=== PATIENT | female | born 1940 | race Caucasian/White ===

== ENCOUNTER → 2017-11-11 07:00 | Outpatient (CLI) | payer MEDICARE, OTHER, SELFPAY ==
--- NOTE | 2017-11-11 07:00 | HPBI_ITS ---
MAMMOGRAPHY - BILATERAL SCREENING REASON FOR EXAM: Female, 77 years old. Routine annual screening examination. PERTINENT HISTORY: Non-contributory. TECHNIQUE: Digital bilateral breast mamadou (3D mammographic acquisition) in the CC and MLO projections. 2-D mediolateral oblique (MLO) and craniocaudad (CC) views of both breasts were obtained. CAD: Full Field Digital Mammography with Computer Added Detection was performed. COMPARISON: Comparison is made with prior study dated November 01, 2016 and August 27, 2015. FINDINGS: Breast Composition: There are scattered areas of fibroglandular density. There are no dominant masses or suspicious calcifications. Multiple small rim-like calcification nodule densities are seen in the left breast. These are unchanged. No suspicious microcalcifications are present. No other significant abnormalities are identified. There has been no significant change since the prior study. HPBI/SCREENING MAMM (CAD), BILAT IMPRESSION: Stable bilateral screening mammogram. Yearly follow-up mammogram recommended. (A) ASSESSMENT CATEGORY: BIRADS Category 2: Benign. A letter regarding these results will be sent to the patient by the facility within 30 days. Approximately 10% of breast cancers are not detected by mammography. A normal mammogram should not delay biopsy of a clinically suspicious abnormality. [id number] Electronically Signed: Mart Diamond MD at 8:32 EST Tel [phone], Service support ,
== END ==
PROVIDERS: Family Provider Internal Medicine; PCP Internal Medicine; Visit Provider Internal Medicine
DX: Z12.31 Encounter for screening mammogram for malignant neoplasm of breast (principal)
CPT/HCPCS: 77063; 77067

== ENCOUNTER → 2018-04-28 08:18 | Outpatient (CLI) | payer MEDICARE, OTHER, SELFPAY ==
[2018-04-28 09:29] LABS: Absolute Lymphocyte Count 1.37 X10^3/ul (0.83-4.51); Absolute Neutrophil Count 4.4 X10^3/uL (2.0-7.7); Basophil# 0.02 X10^3/uL; Basophil% 0.3 % (0-1); Eosinophil# 0.11 X10^3/uL; Eosinophils% 1.8 % (0-5); Hematocrit 43.5 % (37-47); Hemoglobin 14.4 g/dl (12.0-15.0); Lymphocyte # 1.37 X10^3/ul (4.0); Lymphocyte % 22.8 % (19-41); Mean Corp Hgb Conc 33.1 g/gl (32-36); Mean Corpuscular Hgb 31.7 pg (27.0-32.0); Mean Corpuscular Volume 95.8 fL (81-99); Mean Platelet Vol. 11.1 fl (6.2-12.0); Monocyte# 0.07 X10^3/uL; Monocyte% 1.2 % (0-10); Neutrophil # 4.43 X10^3/uL (2.7-7.7); Neutrophil % 73.9 % (47-70); Platelet Count 199 K/mm3 (150-450); RBC Distribution Width CV 13.1 % (11.6-14.6); RBC Distribution Width SD 45.5 fl (35.1-43.9); Red Blood Count 4.54 M/mm3 (4.2-5.4)
[2018-04-28 09:39] LABS: POSITIVE COUNT NO; POSITIVE DIFFERENTIAL NO; POSITIVE MORPHOLOGY NO
[2018-04-28 09:56] LABS: Microalbumin,Random Urine 61.9 mg/L (NO RANGE EST.); Microalbumin:Creatinine Ratio 89.6 mg/g CRE (<30 mg/g CRE)
[2018-04-28 10:05] LABS: Vitamin D,25 Hydroxy 45.7 ng/mL (29.95-100.01)
[2018-04-28 10:11] LABS: ALB/GLOB Ratio 0.8 RATIO (0.9-2.4); AST(SGOT) 23 U/L (15-37); Alanine Aminotransfer ALT/SGPT 18 U/L (13-56); Albumin, Serum 3.3 g/dL (3.2-5.0); Alkaline Phosphatase 78 U/L (45-117); Anion Gap 9 (5-15); BUN 13 mg/dL (7-18); BUN/Creat Ratio 13.9 RATIO (10-20); Calcium,Total 9.3 mg/dL (8.5-10.1); Chloride 105 mmol/L (98-107); Cholesterol 197 mg/dL (200); Creatinine, Serum 0.93 mg/dL (0.55-1.02); EST Glomerular Filtration Rate 62 mL/min (>60); Est Glom Filt Rate - Afr Amer 75 mL/min (>60); Globulin 4.1 g/dL (2.2-4.2); Glucose 102 mg/dL (74-106); High Density Lipoprotein 66 mg/dL; Potassium 3.7 mmol/L (3.5-5.1); Protein, Total 7.4 g/dL (6.4-8.2); Sodium Level 145 mmol/L (136-145); Thyroid Stim Hormone (TSH) 0.91 uIU/mL (0.358-3.74); Triglycerides 169 mg/dL; Very Low Density Lipoprotein 34 mg/dL (5-40)
== END ==
PROVIDERS: Family Provider Internal Medicine; PCP Internal Medicine; Visit Provider Internal Medicine
DX: I10 Essential (primary) hypertension (principal); E55.9 Vitamin D deficiency, unspecified; E11.65 Type 2 diabetes mellitus with hyperglycemia; E11.49 Type 2 diabetes mellitus with other diabetic neurological complication
CPT/HCPCS: 36415; 80053; 80061; 82043; 82306; 82570; 84443; 85025

== ENCOUNTER → 2018-10-23 08:09 | Outpatient (CLI) | payer MEDICARE, OTHER, SELFPAY ==
--- NOTE | 2018-10-23 08:17 | BD_ITS ---
STUDY: DUAL ENERGY X-RAY ABSORPTIOMETRY / DXA REASON FOR EXAM: Female, 78 years old. The patient is postmenopausal. Loss of height. TECHNIQUE: Bone Mineral Density (BMD) measurements of lumbar spine and bilateral hips were obtained. COMPARISON: Comparison is made with prior study dated October 16, 2016. FINDINGS: Lumbar Spine (L1-L4): g/cm2 (1.113) / T-score (-0.6) / Z-score (1.2) Findings are suggestive of normal bone density with a low fracture risk. Left Femur Total: g/cm2 (0.878) / T-score (-1.0) / Z-score (0.8) Left Femoral Neck: g/cm2 (0.861) / T-score (-1.3) / Z-score (0.8) Right Femur Total: g/cm2 (0.922) / T-score (-0.7) / Z-score (1.2) Right Femoral Neck: g/cm2 (0.92) / T-score (-0.8) / Z-score (1.2) The T-Scores on the most recent prior examination were: Lumbar Spine (L1-L4): There has been worsening of bone density since the previous examination. Left Femur Total: which represents a worsening of 3.5%. Right Femur Total: which represents a worsening of 0.1%. BD/Dexa Bone Density Study IMPRESSION: The patient is considered osteopenic as outlined below according to World Gee Organization (WHO) criteria with a low fracture risk. There has been worsening of bone density since the previous examination. Reference Information: The T-score is the number of standard deviations above or below the standard which is normal for young adults at their peak bone mineral density. The World Health Organization (WHO) interprets the T-scores as follows: Above -1 Normal bone density Between -1 and -2.5 Osteopenia Equal to / or below -2.5 Osteoporosis As a practical clinical guideline, osteopenia may be graded as follows: Mild -1 through -1.5 Moderate -1.6 through -2.0 Severe -2.1 through -2.4 The Z-score is the number of standard deviations above or below age-matched controls. A Z-score of less than -1.5 would be considered abnormal. References: 1. NIH Osteoporosis and Related Bone Diseases http://www.osteo.org 2. International Society for Clinical Densitometry http://www.iscd.org 3. National Osteoporosis Foundation http://www.nof.org Electronically Signed: Mart Diamond MD at 15:03 EST Tel [phone], Service support ,
== END ==
PROVIDERS: Family Provider Internal Medicine; PCP Internal Medicine; Visit Provider Internal Medicine
DX: Z78.0 Asymptomatic menopausal state (principal)
CPT/HCPCS: 77080

== ENCOUNTER → 2018-11-07 09:57 | Outpatient (CLI) | payer MEDICARE, OTHER, SELFPAY ==
[2017-10-10 15:45] VITALS: BMI 23.5
[2018-11-07 10:02] LABS: Mucous, Urine 0 SEEN /hpf (<or=2+)
[2018-11-07 10:30] LABS: Color, Urine Yellow (Yellow); Glucose, Dipstick Normal (Normal); Ketone-Dipstick Negative (Negative); Leukocyte Esterase-Dipstick 100 /ul (Negative); Nitrite-Dipstick Negative (Negative); Occult Blood-Urine 10 /ul (Negative); Protein-Dipstick 30 mg/dl (Negative); Urine Bilirubin Dipstick Negative (Negative); Urine Clarity Sl. Cloudy (Clear); Urine Urobilinogen Normal (Normal)
[2018-11-07 10:33] LABS: Absolute Lymphocyte Count 0.64 X10^3/ul (0.83-4.51); Absolute Neutrophil Count 3.7 X10^3/uL (2.0-7.7); Basophil# 0.03 X10^3/uL; Basophil% 0.6 % (0-1); Eosinophil# 0.07 X10^3/uL; Eosinophils% 1.3 % (0-5); Hematocrit 46.3 % (37-47); Hemoglobin 15.3 g/dl (12.0-15.0); Lymphocyte # 0.64 X10^3/ul (4.0); Lymphocyte % 12.3 % (19-41); Mean Corpuscular Hgb 31.9 pg (27.0-32.0); Mean Corpuscular Volume 96.7 fL (81-99); Mean Platelet Vol. 11.6 fl (6.2-12.0); Monocyte# 0.71 X10^3/uL; Monocyte% 13.7 % (0-10); Neutrophil # 3.74 X10^3/uL (2.7-7.7); Neutrophil % 72.1 % (47-70); Platelet Count 152 K/mm3 (150-450); RBC Distribution Width CV 12.7 % (11.6-14.6); RBC Distribution Width SD 44.1 fl (35.1-43.9); Red Blood Count 4.79 M/mm3 (4.2-5.4); White Blood Count 5.2 K/mm3 (4.4-11.0)
[2018-11-07 10:36] LABS: Bacteria 1+ /hpf (None Seen); Red Blood Cells-Urine 0-5 SEEN /hpf (0-5); Squamous Epithelial Cells - UA 0-5 SEEN /hpf (5-10); White Blood Cells 10-25 SEEN /hpf (0-5)
[2018-11-07 10:37] LABS: POSITIVE COUNT NO; POSITIVE DIFFERENTIAL NO; POSITIVE MORPHOLOGY NO
[2018-11-07 10:53] LABS: Microalbumin,Random Urine 37.4 mg/L (NO RANGE EST.)
[2018-11-07 11:10] LABS: ALB/GLOB Ratio 0.9 RATIO (0.9-2.4); AST(SGOT) 19 U/L (15-37); Alanine Aminotransfer ALT/SGPT 20 U/L (13-56); Albumin, Serum 3.6 g/dL (3.2-5.0); Alkaline Phosphatase 79 U/L (45-117); Anion Gap 9 (5-15); BUN 14 mg/dL (7-18); Calcium,Total 9.5 mg/dL (8.5-10.1); Chloride 106 mmol/L (98-107); Creatinine, Serum 0.94 mg/dL (0.55-1.02); EST Glomerular Filtration Rate 62 mL/min (>60); Est Glom Filt Rate - Afr Amer 75 mL/min (>60); Globulin 4.1 g/dL (2.2-4.2); Glucose 168 mg/dL (74-106); Potassium 3.6 mmol/L (3.5-5.1); Protein, Total 7.7 g/dL (6.4-8.2); Sodium Level 144 mmol/L (136-145); Thyroid Stim Hormone (TSH) 1.04 uIU/mL (0.358-3.74)
== END ==
PROVIDERS: Family Provider Internal Medicine; PCP Internal Medicine; Referring Provider Internal Medicine; Visit Provider Internal Medicine
DX: I10 Essential (primary) hypertension (principal); E11.9 Type 2 diabetes mellitus without complications
CPT/HCPCS: 36415; 80053; 80061; 81001; 82043; 82570; 83704; 84443; 85025

== ENCOUNTER → 2018-11-25 08:38 | Outpatient (CLI) | payer MEDICARE, OTHER, SELFPAY ==
[2017-10-10 15:45] VITALS: BMI 23.5
--- NOTE | 2018-11-25 08:41 | BI_ITS ---
MAMMOGRAPHY - BILATERAL SCREENING REASON FOR EXAM: Female, 78 years old. Routine annual screening examination. PERTINENT HISTORY: Non-contributory. TECHNIQUE: Digital bilateral breast mamadou (3D mammographic acquisition) in the CC and MLO projections. 2-D mediolateral oblique (MLO) and craniocaudad (CC) views of both breasts were obtained. CAD: Full Field Digital Mammography with Computer Added Detection was performed. COMPARISON: Comparison is made with prior examination dated November 11, 2017 and November 01, 2016. FINDINGS: Breast Composition: There are scattered areas of fibroglandular density. There are no dominant masses or suspicious calcifications. Stable appearance of the multiple small rim-like calcified nodules in the left anterior breast. These are unchanged. No other significant abnormalities are identified. There has been no significant change since the prior study. BI/SCREENING MAMM (CAD), BILAT IMPRESSION: Stable bilateral screening mammogram. Yearly follow-up mammogram recommended. (A) ASSESSMENT CATEGORY: BIRADS Category 2: Benign. A letter regarding these results will be sent to the patient by the facility within 30 days. Approximately 10% of breast cancers are not detected by mammography. A normal mammogram should not delay biopsy of a clinically suspicious abnormality. [id number] Electronically Signed: Mart Diamond MD at 10:29 EST , Service support ,
== END ==
PROVIDERS: Family Provider Internal Medicine; PCP Internal Medicine; Referring Provider Internal Medicine; Visit Provider Internal Medicine
DX: Z12.31 Encounter for screening mammogram for malignant neoplasm of breast (principal)
CPT/HCPCS: 77063; 77067

== ENCOUNTER 2018-12-28 14:19 | Observation (INO) | payer MEDICARE, OTHER, SELFPAY ==
[2018-12-28] VITALS (11 sets, daily range): BP systolic 153–177; BP diastolic 64–84; PULSE 74–87; RESP 13–21; TEMP 36.6–36.9; O2SAT 97–100; BMI 26.1; BMI 25.7
--- NOTE | 2018-12-28 14:37 | CT_ITS ---
STUDY: CT BRAIN WITHOUT CONTRAST REASON FOR EXAM: Female, 78 years old. Weakness in the right first digit RADIATION DOSAGE (If Supplied By Facility): CTDIvol = ( 44.99 ) mGy, DLP = ( 748.30 ) mGycm TECHNIQUE: Transaxial CT imaging of the brain was performed without administration of intravenous contrast material. Individualized dose optimization techniques were used for this CT. COMPARISON: None. FINDINGS: Normal soft tissue structures. Normal calvarium. There is mild cerebral atrophy with widening of the extra-axial spaces and ventricular dilatation. There are areas of decreased attenuation within the white matter tracts of the supratentorial brain, consistent with microvascular disease changes. Normal basal ganglia and thalami. Normal brainstem. Normal cerebellum. There is no intracranial hemorrhage. There are no findings of an acute ischemic infarction. There is atherosclerosis of the carotid siphons and vertebral arteries. Normal visualized paranasal sinuses. CT/Brain/Head without Contrast IMPRESSION: 1. No acute intracranial hemorrhage or mass effect. 2. Age-appropriate central parenchymal volume loss. White matter changes that are nonspecific but most commonly associated with chronic small vessel ischemic disease. Electronically Signed: Frederick Issa MD at 14:59 EDT , Service support ,
--- NOTE | 2018-12-28 14:37 | EKG12_ITS ---
Test Reason : WEAKNESS Blood Pressure : / mmHG Vent. Rate : 083 BPM Atrial Rate : 083 BPM P-R Int : 152 ms QRS Dur : 074 ms QT Int : 378 ms P-R-T Axes : 025 002 033 degrees QTc Int : 444 ms Normal sinus rhythm Normal ECG Confirmed by BIA SAGASTUME MD ([id number]), editor farm journal YUNIER ARCE ([id number]) on 12/29/2018 4:07:25 PM Referred By: Jim Alford Confirmed By:BIA SAGASTUME MD
[2018-12-28 14:48] LABS: Absolute Lymphocyte Count 0.87 X10^3/ul (0.83-4.51); Absolute Neutrophil Count 3.2 X10^3/uL (2.0-7.7); Basophil# 0.04 X10^3/uL; Basophil% 0.8 % (0-1); Eosinophil# 0.12 X10^3/uL; Eosinophils% 2.5 % (0-5); Hematocrit 42.1 % (37-47); Hemoglobin 14.4 g/dl (12.0-15.0); Lymphocyte # 0.87 X10^3/ul (4.0); Lymphocyte % 18.3 % (19-41); Mean Corp Hgb Conc 34.2 g/gl (32-36); Mean Corpuscular Hgb 32.8 pg (27.0-32.0); Mean Corpuscular Volume 95.9 fL (81-99); Mean Platelet Vol. 11.4 fl (6.2-12.0); Monocyte# 0.48 X10^3/uL; Monocyte% 10.1 % (0-10); Neutrophil # 3.23 X10^3/uL (2.7-7.7); Neutrophil % 68.1 % (47-70); POSITIVE COUNT NO; POSITIVE DIFFERENTIAL NO; POSITIVE MORPHOLOGY NO; Platelet Count 165 K/mm3 (150-450); RBC Distribution Width CV 12.6 % (11.6-14.6); RBC Distribution Width SD 42.2 fl (35.1-43.9); Red Blood Count 4.39 M/mm3 (4.2-5.4); White Blood Count 4.8 K/mm3 (4.4-11.0)
[2018-12-28 14:52] LABS: Prothrombin Time (Protime)PT. 12.7 SECONDS (11.7-14.9)
[2018-12-28 14:53] LABS: Partial Thromboplast Time 26.4 Seconds (24.1-36.2)
[2018-12-28 15:06] LABS: Anion Gap 4 (5-15); BUN 15 mg/dL (7-18); BUN/Creat Ratio 14.3 RATIO (10-20); Calcium,Total 9.4 mg/dL (8.5-10.1); Chloride 106 mmol/L (98-107); Creatinine, Serum 1.05 mg/dL (0.55-1.02); EST Glomerular Filtration Rate 54 mL/min (>60); Est Glom Filt Rate - Afr Amer 65 mL/min (>60); Estimated Creatinine Clearance 32.23 ml/min; Glucose 286 mg/dL (74-106); Potassium 3.7 mmol/L (3.5-5.1); Sodium Level 139 mmol/L (136-145)
[2018-12-28 15:16] LABS: Bedside Glucose 265 mg/dL (70-110)
--- NOTE | 2018-12-28 16:27 | ED.DCSUM_ITS ---
- ER Visit Summary Date of Service: 12/28/18 Chief Complaint: Right arm weakness History of Present Illness: The patient is a 78 F, diabetic presents with right arm weakness for about an hour and a half prior to arrival. This has improved and now she only has weakness of her thumb and index finger. She has no speech difficulties vision changes sensory deficits she has no gait abnormalities. Physical Examination: Otherwise normal exam, when asked her to raise her arms up she has a small pronator drift as well as slight drift against gravity. Otherwise she has a normal exam and her NIH stroke scale is 1. Emergency Department Course and Treatment: She has an unremarkable ED workup, her ABCD 2 score is 6. Because of this she is high risk and will need admission for neurological workup. Admit stable condition Impression: TIA This note was generated with [employer] dictation software. It may contain incorrect words, spelling, and punctuation that were not noted in review of the chart prior to signing ED Disposition - Plan for ED Patient: Referrals: Macy Stone DO [Primary Care Provider] -
--- NOTE | 2018-12-28 17:21 | HP.PCM_ITS ---
Problem List (1) Right hand weakness Status: Acute (2) Family history of skin cancer Status: Chronic (3) Actinic keratosis Status: Chronic Comment: 8 mm actinic keratosis with moderate atypia dorsum right hand by long finger (4) Diabetes mellitus type 2 in nonobese Status: Chronic History of Present Illness Date of Admission: 12/28/18 Chief Complaint: Right hand weakness The patient is a 78 year old F with diabetes mellitus type 2, not on insulin came to ER with sudden onset of right hand weakness, started dropping objects about 1 PM today. Patient denies any other symptoms including headache, facial drooping, other extremity weakness or paresthesia or sensory deficit or gait abnormalities. Denies speech abnormality or dysphagia. Denies any previous history of TIA. As per the ER physician, he found NIH stroke score 1 of right arm drifting which is now improved to right arm weakness only. When I examined, weakness of thumb and right index finger. Patient denies history of chronic hand arthritis or carpal tunnel syndrome or previous history of TIA or stroke. EKG normal sinus rhythm [address] head does not show any acute change. Past Medical History Past Medical History (Chronic Problems): Chronic Problems (Last Updated 09/24/17 @ 14:24 by Renetta George) Diabetes mellitus type 2 in nonobese (Chronic) Family history of skin cancer (Chronic) Actinic keratosis (Chronic) 8 mm actinic keratosis with moderate atypia dorsum right hand by long finger Medical History: Medical History (Last Updated 09/24/17 @ 14:24 by Renetta George) ACTINIC KERATOSIS WITH MODERATE ATYPIA DORSUM RIGHT HAND BY LONG FINGER BLADDER/URINARY TRACT INFECTION CATARACTS Diabetes E11.9 Gastrointestinal problem R19.8 High cholesterol E78.00 Macular degeneration H35.30 BP (high blood pressure) I10 Allergies No Known Allergies Allergy (Verified 09/06/16 08:09) Home Medications: Ambulatory Orders Medication Instructions Recorded Glimepiride [Amaryl] 2 mg PO DAILY 10/15/14 Metoprolol Tartrate [Lopressor 25 mg PO DAILY 10/15/14 (beta selvin)] Niacin SA [Niaspan] 500 mg PO DAILY 10/15/14 Surgical History: Surgical History (Last Updated 09/24/17 @ 14:30 by Renetta George) EXCISION ACTINIC KERATOSIS WITH MODERATE ATYPIA 8 MM ACTINIC KERATOSIS WITH MODERATE ATYPIA DORSUM RIGHT HAND BY LONG FINGER WITH BILOBED TRANSPOSITION SKIN FLAP RECONSTRUCTION ( 12 CM2) - 09/03/17 EXCISION PANCREATIC CYST H/O exploratory laparotomy Z98.890 History of cholecystectomy Z98.890, Z90.49 Smoking Status: Never smoker - *Family History Paternal Family History: Family History (Last Updated 09/24/17 @ 14:31 by Renetta George) Son Diabetes History Items: - - History of skin cancer Review of Systems Constitutional: Denies: Chills, Fever, Weight Change HEENT: Denies: Head Aches, Sinus Congestion, Sinus Drainage Cardiovascular: Denies: Chest Pain, Palpitations Respiratory: Denies: Cough, Shortness of breath at rest, Sputum production Gastrointestinal: Denies: Abdominal Pain, Nausea, Vomiting Genitourinary: Denies: Dysuria Musculoskeletal: Denies: Joint Pain, Joint Tenderness Skin: Denies: Rash, Wounds Neurological: Reports: Focal weakness, -. Denies: Numbness, Tingling Psychiatric: Denies: Anxiety, Depression, Homicidal Ideations, Suicidal Ideations Hematologic/ Lymphatic: Denies: Easy Bruising, Easy Bleeding VTE Information - Inpt Only VTE Present on Admission: No VTE Mechan Device Prophylaxis: None VTE Pharm Prophylaxis ordered?: Yes Patient Problems: Active and Suspected Problems (Last Updated 09/24/17 @ 14:24 by Renetta George) Right hand weakness (Acute) - Physical Exam General: Alert, Oriented x3, Cooperative HEENT: Atraumatic, PERRLA, EOMI, Normocephalic Oral: Moist Mucosa, No Gingival or Mucosal Lesions/ Ulcerations Neck: Supple, No JVD, Negative Carotid Bruits Lungs: Clear to auscultation, Normal air movement, No rhonchi, No wheeze, No rales Cardiovascular: Regular rate, Regular Rhythm, Normal S1, Normal S2, No murmurs Abdomen: Bowel Sounds Present, Soft, Non Tender, Non-Distended Extremities: No edema, Capillary Refill Less than 3 Seconds Skin: No rashes, No breakdown Musculoskeletal: No Tenderness to Palpation of Joints or Extremities, Arthritic Changes, Muscle Wasting - Bilateral mild atrophy of small muscles of hand, chronic change Neurological: Cranial nerves II-XII grossly intact, Deep Tendon Reflexes 2+/4 and Symmetrical, Neuro grossly intact, - - Weakness of right thumb and index finger. Hand Drawer In Helper strength is 4/ 5 Psych/Mental Status: Normal Affect, Appropriate Vital Signs Temp Pulse Resp BP Pulse Ox 97.8 F 87 20 H 168/77 H 98 12/28/18 14:20 12/28/18 17:03 12/28/18 17:03 12/28/18 17:03 12/28/18 16:22 Oxygen Delivery Method Room Air Weight: 133 lb 9.602 oz Body Mass Index (BMI) 26.1 Finger Stick Blood Glucose 265 Laboratory Tests Past 24 Hrs 12/28/18 12/28/18 12/28/18 14:25 14:25 14:25 WBC 4.8 RBC 4.39 Hgb 14.4 Hct 42.1 MCV 95.9 MCH 32.8 H MCHC 34.2 RDW 12.6 RDW Differential 42.2 Plt Count 165 MPV 11.4 Immature Gran % (Auto) 0.200 Neut % (Auto) 68.1 Lymph % (Auto) 18.3 L [place] % (Auto) 10.1 H Eos % (Auto) 2.5 Baso % (Auto) 0.8 Absolute Neuts (auto) 3.2 Absolute Lymphs (auto) 0.87 Total Counted Not Reportable PT 12.7 INR 1.0 APTT 26.4 Sodium 139 Potassium 3.7 Chloride 106 Carbon Dioxide 29.0 Anion Gap 4 L BUN 15 Creatinine 1.05 H Estim Creat Clear Calc 32.23 Est GFR (MDRD) Af Amer 65 Est GFR (MDRD) Non-Af 54 L BUN/Creatinine Ratio 14.3 Glucose 286 H Calcium 9.4 Troponin I < 0.015 POC Glucose 12/28/18 14:21 POC Glucose 265 H Assessment/Plan All Active Problems (Last Updated 09/24/17 @ 14:24 by Renetta George) Right hand weakness (Acute) The patient is a 78 year old F with diabetes mellitus type 2, not on insulin came to ER with sudden onset of right hand weakness, started dropping objects about 1 PM today. Patient denies any other symptoms including headache, facial drooping, other extremity weakness or paresthesia or sensory deficit or gait abnormalities. Denies speech abnormality or dysphagia. Denies any previous history of TIA. As per the ER physician, he found NIH stroke score 1 of right arm drifting which is now improved to right arm weakness only. When I examined, weakness of thumb and right index finger. Patient denies history of chronic hand arthritis or carpal tunnel syndrome or previous history of TIA or stroke. 1. Focal right hand weakness probably related to carpal tunnel or radial neuropathy/cervical neuropathy: Patient does not have neck pain. Patient is being admitted to PCU to rule out TIA/stroke. MRI brain ordered. Neurology consult. If MRI brain is abnormal can order CT of head and neck. Carotid Doppler of neck is ordered. ABCD 2 score is 6. PT, OT and speech/swallow evaluation. Denies history of hypertension. Elevated blood pressure, 153/64-168/77. Monitor blood pressure if is still elevated can start low-dose lisinopril tomorrow morning 2. Diabetes mellitus type 2: Glucose is 286. A1c tomorrow a.m. Accu-Chek before meals and at bedtime and cover with NovoLog sliding scale. 3. Other chronic comorbidities include actinic keratosis. DVT prophylaxis: On Lovenox 40 mg subcu daily Laboratory Results 12/28/18 14:21: POC Glucose 265 H 12/28/18 14:25: WBC 4.8, RBC 4.39, Hgb 14.4, Hct 42.1, MCV 95.9, MCH 32.8 H, MCHC 34.2, RDW 12.6, RDW Differential 42.2, Plt Count 165, MPV 11.4, Immature Gran % (Auto) 0.200, Neut % (Auto) 68.1, Lymph % (Auto) 18.3 L, [place] % (Auto) 10.1 H, Eos % (Auto) 2.5, Baso % (Auto) 0.8, Absolute Neuts (auto) 3.2, Absolute Lymphs (auto) 0.87, Total Counted Not Reportable 12/28/18 14:25: PT 12.7, INR 1.0, APTT 26.4 12/28/18 14:25: Sodium 139, Potassium 3.7, Chloride 106, Carbon Dioxide 29.0, Anion Gap 4 L, BUN 15, Creatinine 1.05 H, Estim Creat Clear Calc 32.23, Est GFR (MDRD) Af Amer 65, Est GFR (MDRD) Non-Af 54 L, BUN/Creatinine Ratio 14.3, Glucose 286 H, Calcium 9.4, Troponin I < 0.015 Clinical Impression(s) from Imaging Studies Brain CT 12/28/18 14:37 IMPRESSION: 1. No acute intracranial hemorrhage or mass effect. 2. Age-appropriate central parenchymal volume loss. White matter changes that are nonspecific but most commonly associated with chronic small vessel ischemic disease. Code Visit OBSV E&M: 67140 Initial observation care L3
--- NOTE | 2018-12-28 17:58 | MRI_ITS ---
We are attempting to reach Jim Alford to discuss findings. An addendum with communication details will be sent when the communication is complete. STUDY: MRI BRAIN WITHOUT CONTRAST REASON FOR EXAM: Female, 78 years old. rt arm hand weakness. TECHNIQUE: Standardized multiplanar fat and water weighted pulse sequences were obtained. COMPARISON: 12/28/2018 CT of the head FINDINGS: There is mild cerebral atrophy with widening of the extra-axial spaces and ventricular dilatation. There are multiple white matter hyperintensities, distributed throughout the deep white matter tracts of the cerebral hemispheres, consistent with moderate chronic white matter ischemic changes. There is right occipital encephalomalacia and gliosis, consistent with prior insult. There is left posterior frontal small area of restricted diffusion (diffusion image #21 series 4) with drop of signal on a DC map consistent with acute infarction. Normal bilateral basal ganglia. Normal thalami. There is no extra-axial fluid accumulation. Normal flow voids within the major intracranial circulation suggesting patency by spin echo criteria. Normal sella turcica, pituitary gland, infundibular stalk, optic chiasm and hypothalamus. Normal tectal plate and pineal gland. There are chronic white matter ischemic changes of the kathleen. The midbrain and medulla are otherwise normal. 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 Moderate chronic microvascular ischemic changes. Electronically Signed: Maranda De La Torre MD at 9:44 EDT Tel , Service support ,
[2018-12-28] MEDS: 0.9% Normal Saline 1,000 ML 100 ML IV (18:27)
[2018-12-28] MEDS: Enoxaparin 40 MG/0.4 ML Syringe SC (18:52)
[2018-12-28] MEDS: Aspirin 81 MG TAB.CHEW PO (18:52)
[2018-12-28] MEDS: Atorvastatin Calcium 80 MG Tablet PO (21:10)
[2018-12-28] MEDS: Famotidine 20 MG Tablet PO (21:10)
[2018-12-28 21:11] LABS: Magnesium 1.8 mg/dL (1.6-2.6); Thyroid Stim Hormone (TSH) 0.89 uIU/mL (0.358-3.74)
[2018-12-28 21:15] LABS: Bedside Glucose 205 mg/dL (70-110)
[2018-12-28] MEDS: Insulin Lispro 100 UNIT/ML INSULN.PEN SQ (21:15)
[2018-12-29] VITALS (13 sets, daily range): BP systolic 133–162; BP diastolic 60–79; PULSE 65–95; RESP 14–18; TEMP 36.4–37; O2SAT 95–98; BMI 25.7
[2018-12-29] MEDS: Loperamide 2 MG Capsule PO ×3 (00:35→21:54)
[2018-12-29 07:14] LABS: Cholesterol 167 mg/dL (200); High Density Lipoprotein 64 mg/dL; Triglycerides 167 mg/dL; Very Low Density Lipoprotein 33 mg/dL (5-40)
[2018-12-29 07:36] LABS: Bedside Glucose 96 mg/dL (70-110)
[2018-12-29 08:09] LABS: Hemoglobin A1c 7.7 % (4.2-6.3)
--- NOTE | 2018-12-29 10:00 | CDU_ITS ---
Reason For Study: TIA Rt. Velocities/BP Lt. Velocities/BP Prox CCA 72/16 cm/sec. Prox CCA 106/18 cm/sec. Mid CCA 65/17 cm/sec. Mid CCA 82/14 cm/sec. Dist CCA 67/16 cm/sec. Dist CCA 63/16 cm/sec. Prox ICA 60/16 cm/sec. Prox ICA 58/15 cm/sec. Mid ICA 72/20 cm/sec. Mid ICA 58/18 cm/sec. Dist ICA 46/14 cm/sec. Dist ICA 62/20 cm/sec. Rt. ICA/CCA = 1.11. Lt. ICA/CCA = 0.76. Prox ECA 64/1 cm/sec. Prox ECA 55/8 cm/sec. Rt. Vert. 57/17 cm/sec. Lt. Vert. 45/14 cm/sec. Right Extracranial There is intimal thickening but no significant atherosclerotic plaque noted in the right common carotid artery. There is heterogeneous, irregular atherosclerotic plaque noted in the right internal carotid artery. There is intimal thickening but no significant atherosclerotic plaque noted in the right external carotid artery. Antegrade flow is noted in the right vertebral artery. Left Extracranial There is intimal thickening but no significant atherosclerotic plaque noted in the left common carotid artery. There is heterogeneous, irregular atherosclerotic plaque noted in the left internal carotid artery. There is intimal thickening but no significant atherosclerotic plaque noted in the left external carotid artery. Antegrade flow is noted in the left vertebral artery. Procedure Carotid Duplex [id number]. Exam performed portable in patient room. Interpretation Summary Minimal plague at the proximal right internal carotid with <50% stenosis Normal flow right external carotid Minimal plague at the proximal left internal carotid with <50% stenosis Normal flow left external carotid Patent and antegrade vertebrals bilaterally Ordering Physician: Jim Alford Referring Physician: Macy Stone Performed By: Irene Burch, RDCS, RVT
[2018-12-29] MEDS: Enoxaparin 40 MG/0.4 ML Syringe SC (10:23)
[2018-12-29] MEDS: Aspirin 81 MG TAB.CHEW PO (10:23)
[2018-12-29] MEDS: Famotidine 20 MG Tablet PO ×2 (10:23→21:53)
[2018-12-29] MEDS: Insulin Lispro 100 UNIT/ML INSULN.PEN SQ ×3 (11:34→21:54)
[2018-12-29 11:45] LABS: Bedside Glucose 153 mg/dL (70-110)
--- NOTE | 2018-12-29 11:57 | PCM.CONS.GEN ---
Reason for Consult Date of Consultation: 12/29/18 Reason for Consultation: cva History of Present Illness: The patient is a 78 year old F right handed presented yesterday afternoon to ed with onset begining at 1pm of right hand weakness, with out other associated symptoms. family transported her to the ed at 2pm and was admitted. today feels improved, not baseline. doesnt take asa at home, no history of afib. no history of tob use. no recent illness or med changes. Per admit note: The patient is a 78 year old F with diabetes mellitus type 2, not on insulin came to ER with sudden onset of right hand weakness, started dropping objects about 1 PM today. Patient denies any other symptoms including headache, facial drooping, other extremity weakness or paresthesia or sensory deficit or gait abnormalities. Denies speech abnormality or dysphagia. Denies any previous history of TIA. As per the ER physician, he found NIH stroke score 1 of right arm drifting which is now improved to right arm weakness only. When I examined, weakness of thumb and right index finger. Patient denies history of chronic hand arthritis or carpal tunnel syndrome or previous history of TIA or stroke. EKG normal sinus rhythm [address] head does not show any acute change. Past Medical History Past Medical History (Chronic Problems): Chronic Problems (Last Reviewed 12/29/18 @ 12:25 by Fabrice Sorensen MD) Diabetes mellitus type 2 in nonobese (Chronic) Family history of skin cancer (Chronic) Actinic keratosis (Chronic) 8 mm actinic keratosis with moderate atypia dorsum right hand by long finger Medical History: Medical History (Last Reviewed 12/29/18 @ 12:25 by Fabrice Sorensen MD) ACTINIC KERATOSIS WITH MODERATE ATYPIA DORSUM RIGHT HAND BY LONG FINGER BLADDER/URINARY TRACT INFECTION CATARACTS Diabetes E11.9 Gastrointestinal problem R19.8 High cholesterol E78.00 Macular degeneration H35.30 BP (high blood pressure) I10 Allergies No Known Allergies Allergy (Verified 09/06/16 08:09) Home Medications: Ambulatory Orders Medication Instructions Recorded Glimepiride [Amaryl] 2 mg PO BID 10/15/14 Metoprolol Tartrate [Lopressor 25 mg PO DAILY 10/15/14 (beta selvin)] Niacin SA [Niaspan] 500 mg PO DAILY 10/15/14 Bismuth Subsalicylate 262 mg PO BID 12/28/18 [Pepto-Bismol] Famotidine [Pepcid] 20 mg PO BID 12/28/18 Loperamide HCl [Imodium A-D] 2 mg PO PRN PRN 12/28/18 Surgical History: Surgical History (Last Reviewed 12/29/18 @ 12:25 by Fabrice Sorensen MD) EXCISION ACTINIC KERATOSIS WITH MODERATE ATYPIA 8 MM ACTINIC KERATOSIS WITH MODERATE ATYPIA DORSUM RIGHT HAND BY LONG FINGER WITH BILOBED TRANSPOSITION SKIN FLAP RECONSTRUCTION ( 12 CM2) - 09/03/17 EXCISION PANCREATIC CYST H/O exploratory laparotomy Z98.890 History of cholecystectomy Z98.890, Z90.49 Smoking Status: Never smoker Tobacco Use: Non-smoker Alcohol: None - *Family History Paternal Family History: Family History (Last Updated 09/24/17 @ 14:31 by Renetta George) Son Diabetes History Items: - - History of skin cancer Review of Systems Constitutional: Denies: Chills, Fever, Weight Change HEENT: Denies: Head Aches, Sinus Congestion, Sinus Drainage Cardiovascular: Denies: Chest Pain, Palpitations Respiratory: Denies: Cough, Shortness of breath at rest, Sputum production Gastrointestinal: Denies: Abdominal Pain, Nausea, Vomiting Genitourinary: Denies: Dysuria Musculoskeletal: Denies: Joint Pain, Joint Tenderness Skin: Denies: Rash, Wounds Neurological: Reports: Focal weakness - right hand. Denies: Numbness, Tingling Psychiatric: Denies: Anxiety, Depression, Homicidal Ideations, Suicidal Ideations Hematologic/ Lymphatic: Denies: Easy Bruising, Easy Bleeding Patient Problems: Active and Suspected Problems (Last Reviewed 12/29/18 @ 12:25 by Fabrice Sorensen MD) Right hand weakness (Acute) - Physical Exam General: Alert, Oriented x3, Cooperative HEENT: Atraumatic, PERRLA, EOMI, Normocephalic Neck: Supple, No JVD, Negative Carotid Bruits Lungs: Clear to auscultation, Normal air movement Cardiovascular: Regular rate, No murmurs Abdomen: Bowel Sounds Present, Soft, Non Tender Extremities: No edema, Capillary Refill Less than 3 Seconds Skin: No rashes, No breakdown Musculoskeletal: No Tenderness to Palpation of Joints or Extremities Neurological: Cranial nerves II-XII grossly intact, - - minimal abn orbit on right Psych/Mental Status: Normal Affect, Appropriate Vital Signs Temp Pulse Resp BP Pulse Ox 36.8 C 76 16 162/78 H 98 12/29/18 10:00 12/29/18 10:00 12/29/18 10:00 12/29/18 10:00 12/29/18 10:00 Oxygen Delivery Method Room Air Weight: 59.8 kg Body Mass Index (BMI) 25.7 Finger Stick Blood Glucose 265 Intake and Output for Last 24 Hours 12/27/18 12/28/18 12/29/18 23:59 23:59 23:59 Intake Total 0 / 0 1100 / 1100 Output Total 0 / 0 Balance 0 / 0 1100 / 1100 Laboratory Tests Past 24 Hrs 12/28/18 12/28/18 12/28/18 14:25 14:25 14:25 WBC 4.8 RBC 4.39 Hgb 14.4 Hct 42.1 MCV 95.9 MCH 32.8 H MCHC 34.2 RDW 12.6 RDW Differential 42.2 Plt Count 165 MPV 11.4 Immature Gran % (Auto) 0.200 Neut % (Auto) 68.1 Lymph % (Auto) 18.3 L [place] % (Auto) 10.1 H Eos % (Auto) 2.5 Baso % (Auto) 0.8 Absolute Neuts (auto) 3.2 Absolute Lymphs (auto) 0.87 Total Counted Not Reportable PT 12.7 INR 1.0 APTT 26.4 Sodium 139 Potassium 3.7 Chloride 106 Carbon Dioxide 29.0 Anion Gap 4 L BUN 15 Creatinine 1.05 H Estim Creat Clear Calc 32.23 Est GFR (MDRD) Af Amer 65 Est GFR (MDRD) Non-Af 54 L BUN/Creatinine Ratio 14.3 Glucose 286 H Hemoglobin A1c Calcium 9.4 Magnesium Troponin I < 0.015 Triglycerides Cholesterol LDL Cholesterol VLDL Cholesterol HDL Cholesterol TSH 12/28/18 12/28/18 12/29/18 18:20 18:20 06:20 WBC RBC Hgb Hct MCV MCH MCHC RDW RDW Differential Plt Count MPV Immature Gran % (Auto) Neut % (Auto) Lymph % (Auto) [place] % (Auto) Eos % (Auto) Baso % (Auto) Absolute Neuts (auto) Absolute Lymphs (auto) Total Counted PT INR APTT Sodium Potassium Chloride Carbon Dioxide Anion Gap BUN Creatinine Estim Creat Clear Calc Est GFR (MDRD) Af Amer Est GFR (MDRD) Non-Af BUN/Creatinine Ratio Glucose Hemoglobin A1c Calcium Magnesium 1.8 Troponin I < 0.015 Triglycerides 167 Cholesterol 167 LDL Cholesterol 70 VLDL Cholesterol 33 HDL Cholesterol 64 TSH 0.89 12/29/18 06:20 WBC RBC Hgb Hct MCV MCH MCHC RDW RDW Differential Plt Count MPV Immature Gran % (Auto) Neut % (Auto) Lymph % (Auto) [place] % (Auto) Eos % (Auto) Baso % (Auto) Absolute Neuts (auto) Absolute Lymphs (auto) Total Counted PT INR APTT Sodium Potassium Chloride Carbon Dioxide Anion Gap BUN Creatinine Estim Creat Clear Calc Est GFR (MDRD) Af Amer Est GFR (MDRD) Non-Af BUN/Creatinine Ratio Glucose Hemoglobin A1c 7.7 H Calcium Magnesium Troponin I Triglycerides Cholesterol LDL Cholesterol VLDL Cholesterol HDL Cholesterol TSH POC Glucose 12/29/18 12/29/18 12/28/18 11:32 07:30 21:08 POC Glucose 153 H 96 205 H 12/28/18 14:21 POC Glucose 265 H MRI reviewed. There is a small cortical left MCA distribution infarct of the post central gyrus. Current Home Med List Medication Instructions Recorded Confirmed Type Glimepiride [Amaryl] 2 mg PO BID 10/15/14 12/28/18 History Metoprolol Tartrate [Lopressor 25 mg PO DAILY 10/15/14 12/28/18 History (beta selvin)] Niacin SA [Niaspan] 500 mg PO DAILY 10/15/14 12/28/18 History Bismuth Subsalicylate 262 mg PO BID 12/28/18 12/28/18 History [Pepto-Bismol] Famotidine [Pepcid] 20 mg PO BID 12/28/18 12/28/18 History Loperamide HCl [Imodium A-D] 2 mg PO PRN PRN 12/28/18 12/28/18 History Current Medications Generic Name Dose Route Start Last Admin Trade Name Freq PRN Reason Stop Dose Admin Acetaminophen 650 mg 12/28/18 17:58 Tylenol PO Q4H PRN PRN Headache/Temp>99F Aspirin 81 mg 12/28/18 18:30 12/29/18 10:23 Aspirin, Baby PO 81 mg DAILY@0800 KATT Administration Atorvastatin Calcium 80 mg 12/28/18 22:00 12/28/18 21:10 Lipitor PO 80 mg QHS KATT Administration Dextrose 0 gm 12/28/18 17:58 D50w Syringe IV X1 PRN Hypoglycemia Protocol Enoxaparin Sodium 40 mg 12/28/18 18:30 12/29/18 10:23 Lovenox SC 40 mg DAILY KATT Administration Famotidine 20 mg 12/28/18 22:00 12/29/18 10:23 Pepcid PO 20 mg BID KATT Administration Glucagon 1 mg 12/28/18 17:58 IM .X1 PRN Hypoglycemia Insulin Human Lispro 0 unit 12/28/18 22:00 12/29/18 11:34 Humalog Kwikpen (Bkc) SQ 2 u ACHS KATT Administration Protocol Loperamide HCl 2 mg 12/29/18 00:00 12/29/18 10:23 Imodium PO 2 mg BID KATT Administration Sodium Chloride 5 - 15 ml 12/28/18 18:30 IV UD PRN SALINE FLUSH carotid us neg by report Assessment/Plan All Active Problems (Last Reviewed 12/29/18 @ 12:25 by Fabrice Sorensen MD) Right hand weakness (Acute) small left cortical infarct agree with statin agree with asa bp control echo tele dc in am if above normal
--- NOTE | 2018-12-29 12:31 | ECHOCS_ITS ---
Version 2 Reason For Study: CVA Procedure This was a 2D Doppler, Color Flow transthoracic echocardiogram. Contrast injection was performed. Exam performed portable in patient room. Left Ventricle Normal LV size. Left ventricular systolic function is normal. The estimated ejection fraction is 60 %. Stage 1 diastolic dysfunction. No regional wall motion abnormalities noted. Right Ventricle Normal RV size. Normal systolic function. Atria Normal left atrium. Normal right atrium. Intact atrial septum. Mitral Valve Normal mitral valve. Tricuspid Valve The tricuspid valve is not well visualized. Pulmonic Valve The pulmonic valve is not well visualized. Great Vessels Normal aortic root. The pulmonary artery is normal size. Normal inferior vena cava. Pericardium/Pleural No pericardial effusion. Medication Diluted definity 3ml given slow IV push to enhance endocardial definition. Performed a rapid injection of agitated mix of 9 cc saline and 1cc air to assess for atrial septal defect. MMode/2D Measurements & Calculations LVIDd: 3.5 cm IVSd: 0.73 cm Ao root diam: 3.2 cm LVIDs: 2.0 cm LVPWd: 0.81 cm RVDd: 2.8 cm FS: 43.6 % LAV(MOD-bp): 42.4 ml LA A4 area: 18.9 cm2 RA A4 area: 11.1 cm2 LAV(MOD-bp) Indexed: 27.1 ml/m2 LAV(MOD-sp2): 29.7 ml LAV(MOD-sp4): 55.2 ml Time Measurements MV dec time: 0.27 sec Doppler Measurements & Calculations MV E max rafal: 76.8 cm/sec Lat Peak E' Rafal: 6.5 cm/sec Med Peak E' Rafal: 5.1 cm/sec MV A max rafal: 116.0 cm/sec E/E' lat: 11.8 E/E' med: 15.1 MV E/A: 0.66 MV V2 max: 134.2 cm/sec MV P1/2t max rafal: 88.0 cm/sec Ao V2 max: 121.9 cm/sec MV max P.2 mmHg MV P1/2t: 98.0 msec Ao max P.9 mmHg MV V2 mean: 65.7 cm/sec MV dec slope: 262.8 cm/sec2 Ao V2 mean: 77.1 cm/sec MV mean P.1 mmHg MVA(P1/2t): 2.2 cm2 Ao mean P.8 mmHg MV V2 VTI: 29.4 cm Ao V2 VTI: 26.2 cm AI max rafal: 351.7 cm/sec LV V1 max: 113.9 cm/sec PA V2 max: 82.2 cm/sec AI max P.6 mmHg LV V1 max P.2 mmHg LV V1 mean P.3 mmHg AI dec slope: 237.7 cm/sec2 LV V1 mean: 69.0 cm/sec AI P1/2t: 433.4 msec LV V1 VTI: 21.8 cm Interpretation Summary Normal LV size. Left ventricular systolic function is normal. The estimated ejection fraction is 60 %. Stage 1 diastolic dysfunction. Intact atrial septum Contrast injection was performed. Ordering Physician: Stew Ramírez Referring Physician: Jim Alford Performed By: Jermain Gillis RCS
--- NOTE | 2018-12-29 14:44 | PCM.PROGNOTE ---
<Alison Rnadall - Last Filed: 12/29/18 14:56> Patient Problems: Active and Suspected Problems (Last Reviewed 12/29/18 @ 12:25 by Fabrice Sorensen MD) Right hand weakness (Acute) Subjective: Patient seen and examined. Right hand weakness improved. Denies other neurologic deficits. - Physical Exam General: Alert, Oriented x3, Cooperative HEENT: Atraumatic, PERRLA, EOMI, Normocephalic Neck: Supple, No JVD, Negative Carotid Bruits Lungs: Clear to auscultation, Normal air movement Cardiovascular: Regular rate, Regular Rhythm, Normal S1, Normal S2, No murmurs Abdomen: Bowel Sounds Present, Soft, Non Tender, Non-Distended Extremities: No clubbing, No cyanosis, No edema, Capillary Refill Less than 3 Seconds Skin: No rashes, No breakdown Musculoskeletal: No Tenderness to Palpation of Joints or Extremities, Arthritic Changes Neurological: Cranial nerves II-XII grossly intact, Neuro grossly intact, - - Right hand weakness, 3/5 Psych/Mental Status: Normal Affect, Appropriate Vital Signs Temp Pulse Resp BP Pulse Ox 98.6 F 83 16 159/77 H 96 12/29/18 13:59 12/29/18 13:59 12/29/18 13:59 12/29/18 13:59 12/29/18 13:59 Oxygen Delivery Method Room Air Weight: 131 lb 13.383 oz Body Mass Index (BMI) 25.7 Finger Stick Blood Glucose 265 Intake and Output for Last 24 Hours 12/27/18 12/28/18 12/29/18 23:59 23:59 23:59 Intake Total 0 / 0 1100 / 1100 Output Total 0 / 0 Balance 0 / 0 1100 / 1100 Laboratory Tests Past 24 Hrs 12/28/18 12/28/18 12/28/18 14:25 14:25 14:25 WBC 4.8 RBC 4.39 Hgb 14.4 Hct 42.1 MCV 95.9 MCH 32.8 H MCHC 34.2 RDW 12.6 RDW Differential 42.2 Plt Count 165 MPV 11.4 Immature Gran % (Auto) 0.200 Neut % (Auto) 68.1 Lymph % (Auto) 18.3 L [place] % (Auto) 10.1 H Eos % (Auto) 2.5 Baso % (Auto) 0.8 Absolute Neuts (auto) 3.2 Absolute Lymphs (auto) 0.87 Total Counted Not Reportable PT 12.7 INR 1.0 APTT 26.4 Sodium 139 Potassium 3.7 Chloride 106 Carbon Dioxide 29.0 Anion Gap 4 L BUN 15 Creatinine 1.05 H Estim Creat Clear Calc 32.23 Est GFR (MDRD) Af Amer 65 Est GFR (MDRD) Non-Af 54 L BUN/Creatinine Ratio 14.3 Glucose 286 H Hemoglobin A1c Calcium 9.4 Magnesium Troponin I < 0.015 Triglycerides Cholesterol LDL Cholesterol VLDL Cholesterol HDL Cholesterol TSH 12/28/18 12/28/18 12/29/18 18:20 18:20 06:20 WBC RBC Hgb Hct MCV MCH MCHC RDW RDW Differential Plt Count MPV Immature Gran % (Auto) Neut % (Auto) Lymph % (Auto) [place] % (Auto) Eos % (Auto) Baso % (Auto) Absolute Neuts (auto) Absolute Lymphs (auto) Total Counted PT INR APTT Sodium Potassium Chloride Carbon Dioxide Anion Gap BUN Creatinine Estim Creat Clear Calc Est GFR (MDRD) Af Amer Est GFR (MDRD) Non-Af BUN/Creatinine Ratio Glucose Hemoglobin A1c Calcium Magnesium 1.8 Troponin I < 0.015 Triglycerides 167 Cholesterol 167 LDL Cholesterol 70 VLDL Cholesterol 33 HDL Cholesterol 64 TSH 0.89 12/29/18 06:20 WBC RBC Hgb Hct MCV MCH MCHC RDW RDW Differential Plt Count MPV Immature Gran % (Auto) Neut % (Auto) Lymph % (Auto) [place] % (Auto) Eos % (Auto) Baso % (Auto) Absolute Neuts (auto) Absolute Lymphs (auto) Total Counted PT INR APTT Sodium Potassium Chloride Carbon Dioxide Anion Gap BUN Creatinine Estim Creat Clear Calc Est GFR (MDRD) Af Amer Est GFR (MDRD) Non-Af BUN/Creatinine Ratio Glucose Hemoglobin A1c 7.7 H Calcium Magnesium Troponin I Triglycerides Cholesterol LDL Cholesterol VLDL Cholesterol HDL Cholesterol TSH POC Glucose 12/29/18 12/29/18 12/28/18 11:32 07:30 21:08 POC Glucose 153 H 96 205 H 12/28/18 14:21 POC Glucose 265 H Medical Necessity - Tobacco Use Smoking Status: Never smoker Tobacco Use: Non-smoker Assessment/Plan All Active Problems (Last Reviewed 12/29/18 @ 12:25 by Fabrice Sorensen MD) Right hand weakness (Acute) 1. Acute small left cortical infarct-right hand weakness improving. No other neurologic deficits. MRI of brain with small acute infarct of the left posterior frontal lobe. Carotid ultrasound with less than 50% stenosis. PT/OT/ST. Echocardiogram pending. Continue aspirin, statin. 2. Hypertension-mildly elevated. Permissive given #1 for 24 hours. Continue metoprolol regimen tomorrow with addition of lisinopril 5 mg daily. 3. Type 2 diabetes [id number] AC at bedtime with sliding scale insulin. Hemoglobin A1c 7.7%. 4. GERD-continue Pepcid regimen. DVT prophylaxis-Lovenox subcu This patient was seen by VEL Serna under the supervision of Dr. Ramírez. <Stew Ramírez - Last Filed: 12/29/18 16:20> Subjective: Still with some weakness in right hand, but improved. - Physical Exam General: Alert, Cooperative HEENT: Atraumatic, Normocephalic Neurological: - Psych/Mental Status: Normal Affect, Appropriate Vital Signs Temp Pulse Resp BP Pulse Ox 37.0 C 87 16 159/77 H 96 12/29/18 13:59 12/29/18 15:00 12/29/18 13:59 12/29/18 13:59 12/29/18 13:59 Oxygen Delivery Method Room Air Weight: 59.8 kg Body Mass Index (BMI) 25.7 Finger Stick Blood Glucose 265 Intake and Output for Last 24 Hours 12/27/18 12/28/18 12/29/18 23:59 23:59 23:59 Intake Total 0 / 0 1100 / 1100 Output Total 0 / 0 Balance 0 / 0 1100 / 1100 Laboratory Tests Past 24 Hrs 12/28/18 12/28/18 12/29/18 18:20 18:20 06:20 Hemoglobin A1c Magnesium 1.8 Troponin I < 0.015 Triglycerides 167 Cholesterol 167 LDL Cholesterol 70 VLDL Cholesterol 33 HDL Cholesterol 64 TSH 0.89 12/29/18 06:20 Hemoglobin A1c 7.7 H Magnesium Troponin I Triglycerides Cholesterol LDL Cholesterol VLDL Cholesterol HDL Cholesterol TSH POC Glucose 12/29/18 12/29/18 12/28/18 11:32 07:30 21:08 POC Glucose 153 H 96 205 H Assessment/Plan Patient seen and examined independently. Data reviewed. I agree with the above note by the nurse practitioner. 1. Acute stroke: Acute small left cortical infarct. Await further neurology workup including echocardiogram. Patient be monitored overnight and if does well no additional concerns on echocardiogram patient likely be discharged on the . Code Visit OBSV E&M: 27675 Subsequent observation care L2
[2018-12-29 16:56] LABS: Bedside Glucose 156 mg/dL (70-110)
[2018-12-29] MEDS: Atorvastatin Calcium 40 MG Tablet PO (21:56)
[2018-12-29 22:05] LABS: Bedside Glucose 265 mg/dL (70-110)
[2018-12-30 03:06] VITALS: PULSE 79
[2018-12-30 03:51] VITALS: BP 123/62; PULSE 78; RESP 16; TEMP 36.8; O2SAT 95
[2018-12-30 06:37] LABS: Anion Gap 6 (5-15); BUN 16 mg/dL (7-18); BUN/Creat Ratio 18.5 RATIO (10-20); Calcium,Total 8.8 mg/dL (8.5-10.1); Chloride 110 mmol/L (98-107); Creatinine, Serum 0.86 mg/dL (0.55-1.02); EST Glomerular Filtration Rate 68 mL/min (>60); Est Glom Filt Rate - Afr Amer 82 mL/min (>60); Estimated Creatinine Clearance 39.35 ml/min; Glucose 138 mg/dL (74-106); Sodium Level 144 mmol/L (136-145)
[2018-12-30 06:50] LABS: Bedside Glucose 132 mg/dL (70-110)
[2018-12-30 07:00] VITALS: PULSE 79
[2018-12-30 08:18] VITALS: BP 137/67; PULSE 80; RESP 16; TEMP 36.6; O2SAT 96
[2018-12-30] MEDS: Famotidine 20 MG Tablet PO (08:25)
[2018-12-30] MEDS: Aspirin 81 MG TAB.CHEW PO (08:26)
[2018-12-30] MEDS: Enoxaparin 40 MG/0.4 ML Syringe SC (08:26)
--- NOTE | 2018-12-30 09:58 | CASEMGMT ---
SW met with patient, introduced self and role at [facility]. KHOA explained that often after an individual has a stroke he/she may exhibit signs of Depression. SW explained to her that we complete this short assessment for patient's who have had strokes. SW told her we have a list of resources available if needed as we want to get patient's that need help the help they need. Patient scored a 0. She feels right after they told her she had a little stroke she felt depressed. Then she was thankful it was mild, she is getting her feeling back, and she can take medicine. She thanked SW for checking in with her. Justine SHAHID MSW
[2018-12-30 11:00] VITALS: PULSE 103
--- NOTE | 2018-12-30 11:05 | CASEMGMT ---
This ZAIRE JORDAN to room with CADET form at this time, explanation done-pt voices understanding and signed CADET at this time. Original to chart and copy to pt at this time. Therapy is recommending OP therapy at this time and pt is agreeable at this time. PT/OT script faxed to [facility] at this time and original to pt. Pt voices no further questions/concerns/needs at this time. S[place]en ZAIRE JORDAN
--- NOTE | 2018-12-30 11:17 | DCINST_ITS ---
- Discharge Diagnoses Current Active Problems: Current Active and Chronic Problems (Last Reviewed 12/29/18 @ 12:25 by Fabrice Sorensen MD) Acute stroke Diabetes mellitus type 2 in nonobese (Chronic) Hypertension You will use the following diet at home:: No restrictions Discharge Activity: Return to Normal Activity Call your doctor if you observe: Numbness or Tingling, Shortness of breath, Dizziness, Fainting spells, Chest pain Allergies/Adverse Reactions: Allergies No Known Allergies Allergy (Verified 09/06/16 08:09) Medications to take at Discharge Glimepiride [Amaryl] 2 mg PO BID 10/15/14 Metoprolol Tartrate [Lopressor (beta selvin)] 25 mg PO DAILY 10/15/14 Bismuth Subsalicylate [Pepto-Bismol] 262 mg PO BID 12/28/18 Famotidine [Pepcid] 20 mg PO BID 12/28/18 Loperamide HCl [Imodium A-D] 2 mg PO PRN PRN 12/28/18 Aspirin [Aspirin, Baby] 81 mg PO DAILY@0800 #30 tab.chew 12/29/18 Atorvastatin Calcium [Lipitor] 40 mg PO QHS #30 tablet 12/29/18 The following prescriptions were given: Aspirin [Aspirin, Baby] 81 mg PO DAILY@0800 #30 tab.chew Atorvastatin Calcium [Lipitor] 40 mg PO QHS #30 tablet Primary Care Physician: Macy Stone DO [Primary Care Provider] - Please follow up with your Primary Care Physician in: 1 Week Test Results: Test results from this visit will be discussed in further detail at your follow- up appointment, if applicable. Please Follow Up With: Fabrice Sorensen MD When: 2-4 Weeks Proposed Discharge Date: 12/30/18
[2018-12-30] MEDS: Insulin Lispro 100 UNIT/ML INSULN.PEN SQ (11:27)
[2018-12-30 11:36] LABS: Bedside Glucose 279 mg/dL (70-110)
--- NOTE | 2018-12-30 12:19 | PCM.DC.SUM ---
<Alison Randall - Last Filed: 12/30/18 12:27> Discharge Date and Diagnosis Date of Admission: 12/28/18 Date of Discharge: 12/30/18 - Primary Discharge Diagnosis Active and Suspected Problems (Last Reviewed 12/29/18 @ 12:25 by Fabrice Sorensen MD) 1. Acute stroke, small left cortical infarct 2. Hypertension 3. Type 2 diabetes mellitus 4. GERD - Secondary Discharge Diagnosis Chronic Problems (Last Reviewed 12/29/18 @ 12:25 by Fabrice Sorensen MD) Diabetes mellitus type 2 in nonobese (Chronic) Family history of skin cancer (Chronic) Actinic keratosis (Chronic) 8 mm actinic keratosis with moderate atypia dorsum right hand by long finger Hospital Course and Treatment Imaging Results: Diagnostic Data Brain CT 12/28/18 14:37 IMPRESSION: 1. No acute intracranial hemorrhage or mass effect. 2. Age-appropriate central parenchymal volume loss. White matter changes that are nonspecific but most commonly associated with chronic small vessel ischemic disease. Electronically Signed: Frederick Issa MD at 14:59 EDT , Service support , Brain MRI 12/28/18 17:58 IMPRESSION: Small acute infarct of the left posterior frontal lobe. Moderate chronic microvascular ischemic changes. Electronically Signed: Maranda De La Torre MD at 9:44 EDT Tel , Service support , ADDENDUM: 12/29/18 1020 IMPRESSION: Small acute infarct of the left posterior frontal lobe. Moderate chronic microvascular ischemic changes. N.B. : The above information has been verbally conveyed by Maranda De La Torre MD to Jessica Wade; [phone], ZAIRE, on 12/29/2018 10:13:37 (ET). Electronically Signed: Maranda De La Torre MD at 9:44 EDT Tel , Service support , Dr. Sorensen- Neurology Operations: None Procedures: 2-D Echocardiogram Summary of Care Provided: The patient is a 78 year old F admitted 12/28/2018 due to right hand weakness. 1. Acute small left cortical infarct-right hand weakness improving. No other neurologic deficits. MRI of brain with small acute infarct of the left posterior frontal lobe. Carotid ultrasound with less than 50% stenosis. Echocardiogram showed an EF of 60%, stage I diastolic dysfunction. No arrhythmias noted on telemetry. Continue aspirin, statin at discharge. Patient will have outpatient PT. Follow-up with primary care physician in 1 week. Follow-up with neurology in 2-4 weeks. Recommended discontinuing home niacin regimen given addition of statin as patient reports she has significant flushing after taking. 2. Hypertension- Permissive given #1 for 24 hours. Blood pressure now within normal limits without further medication. Continue home metoprolol regimen. 3. Type 2 diabetes mellitus-continue home oral regimen. Hemoglobin A1c 7.7%. 4. GERD-continue Pepcid regimen. General: Alert, Oriented x3, Cooperative HEENT: Atraumatic, PERRLA, EOMI, Normocephalic Neck: Supple, No JVD, Negative Carotid Bruits Lungs: Clear to auscultation, Normal air movement Cardiovascular: Regular rate, Regular Rhythm, Normal S1, Normal S2, No murmurs Abdomen: Bowel Sounds Present, Soft, Non Tender, Non-Distended Extremities: No clubbing, No cyanosis, No edema, Capillary Refill Less than 3 Seconds Skin: No rashes, No breakdown Musculoskeletal: No Tenderness to Palpation of Joints or Extremities, Arthritic Changes Neurological: Cranial nerves II-XII grossly intact, Neuro grossly intact, Right hand weakness, 4/5 Psych/Mental Status: Normal Affect, Appropriate Patient seen and examined prior to discharge. Physical assessment as noted above. Patient is stable for discharge with follow up recommendations as noted above. This patient was seen by VEL Serna under the supervision of Dr. Ramírez. - Physical Exam Vital Signs Temp Pulse Resp BP Pulse Ox 97.8 F 103 H 16 137/67 H 96 12/30/18 08:18 12/30/18 11:00 12/30/18 08:18 12/30/18 08:18 12/30/18 08:18 Oxygen Delivery Method Room Air Weight: 131 lb 13.383 oz Body Mass Index (BMI) 25.7 Finger Stick Blood Glucose 265 Intake and Output for Last 24 Hours 12/28/18 12/29/18 12/30/18 23:59 23:59 23:59 Intake Total 0 / 0 1400 / 1400 Output Total 0 / 0 Balance 0 / 0 1400 / 1400 Laboratory Tests Past 24 Hrs 12/30/18 05:35 Sodium 144 Potassium 4.0 Chloride 110 H Carbon Dioxide 28.0 Anion Gap 6 BUN 16 Creatinine 0.86 Estim Creat Clear Calc 39.35 Est GFR (MDRD) Af Amer 82 Est GFR (MDRD) Non-Af 68 BUN/Creatinine Ratio 18.5 Glucose 138 H Calcium 8.8 POC Glucose 12/30/18 12/30/18 12/29/18 11:26 06:46 21:53 POC Glucose 279 H 132 H 265 H 12/29/18 16:47 POC Glucose 156 H Discharge Diet: No Restrictions Discharge Activity: Return to Normal Activity Call your doctor if you observe: Numbness or Tingling, Shortness of breath, Dizziness, Fainting spells, Chest pain Home Medications: Medications to take at Discharge Glimepiride [Amaryl] 2 mg PO BID 10/15/14 Metoprolol Tartrate [Lopressor (beta selvin)] 25 mg PO DAILY 10/15/14 Bismuth Subsalicylate [Pepto-Bismol] 262 mg PO BID 12/28/18 Famotidine [Pepcid] 20 mg PO BID 12/28/18 Loperamide HCl [Imodium A-D] 2 mg PO PRN PRN 12/28/18 Aspirin [Aspirin, Baby] 81 mg PO DAILY@0800 #30 tab.chew 12/29/18 Atorvastatin Calcium [Lipitor] 40 mg PO QHS #30 tablet 12/29/18 Following Prescrptions Were Given to Patient: Aspirin [Aspirin, Baby] 81 mg PO DAILY@0800 #30 tab.chew Atorvastatin Calcium [Lipitor] 40 mg PO QHS #30 tablet Primary Care Physician: Macy Stnoe DO [Primary Care Provider] - Please follow up with your Primary Care Physician in: 1 Week Please Follow Up With: Fabrice Sorensen MD When: 2-4 Weeks Disposition: Home Minutes spent on discharge:: 35 Patient Condition:: Stable Medical Necessity - Tobacco Use Smoking Status: Never smoker Tobacco Use: Non-smoker Meaningful Use Info Meaningful Use Diagnoses (Choose all that apply): Ischemic CVA - CVA Therapy Assessed for PT,OT and/or ST?: Yes - Ischemic Stroke Antithrombotic order at d/c?: Yes Dx of Atrial fib/flutter?: No Statins at discharge?: Yes Primary Dx Acute Ischemic CVA?: Yes IV tPA ordered during stay?: No Reason IV t-PA not ordered: Medical Contraindication <DesireeToñoStew - Last Filed: 12/30/18 16:32> Discharge Date and Diagnosis - Secondary Discharge Diagnosis Chronic Problems (Last Reviewed 12/29/18 @ 12:25 by Fabrice Sorensen MD) Diabetes mellitus type 2 in nonobese (Chronic) Family history of skin cancer (Chronic) Actinic keratosis (Chronic) 8 mm actinic keratosis with moderate atypia dorsum right hand by long finger Hospital Course and Treatment Operations: None Procedures: 2-D Echocardiogram Summary of Care Provided: Patient seen and examined independently. Data reviewed. I agree with the above note by the nurse practitioner. The patient is a 78 year old F presents with acute onset of right hand weakness. Patient was found to have an acute small left cortical infarct. Patient had workup, including echocardiogram that was unremarkable. Patient was seen in consultation by neurology. Patient discharged with aspirin and atorvastatin. Patient will follow-up with physical therapy as outpatient. She will follow-up with neurology. [] - Physical Exam General: Alert, Cooperative, No apparent distress HEENT: Atraumatic, Normocephalic Extremities: No edema Neurological: - - Slightly improved strength of the right hand as compared to yesterday. Vital Signs Temp Pulse Resp BP Pulse Ox 37.2 C 97 16 142/72 H 100 12/30/18 14:00 12/30/18 14:00 12/30/18 14:00 12/30/18 14:00 12/30/18 14:00 Oxygen Delivery Method Room Air Weight: 59.8 kg Body Mass Index (BMI) 25.7 Finger Stick Blood Glucose 265 Intake and Output for Last 24 Hours 12/28/18 12/29/18 12/30/18 23:59 23:59 23:59 Intake Total 0 / 0 1400 / 1400 Output Total 0 / 0 Balance 0 / 0 1400 / 1400 Laboratory Tests Past 24 Hrs 12/30/18 05:35 Sodium 144 Potassium 4.0 Chloride 110 H Carbon Dioxide 28.0 Anion Gap 6 BUN 16 Creatinine 0.86 Estim Creat Clear Calc 39.35 Est GFR (MDRD) Af Amer 82 Est GFR (MDRD) Non-Af 68 BUN/Creatinine Ratio 18.5 Glucose 138 H Calcium 8.8 POC Glucose 12/30/18 12/30/18 12/29/18 11:26 06:46 21:53 POC Glucose 279 H 132 H 265 H 12/29/18 16:47 POC Glucose 156 H Discharge Diet: Low fat/ Low Cholesterol Discharge Activity: Return to Normal Activity Call your doctor if you observe: Numbness or Tingling, Shortness of breath, Dizziness, Fainting spells, Chest pain Disposition: Home Minutes spent on discharge:: 35 Patient Condition:: Stable Medical Necessity - Tobacco Use Smoking Status: Never smoker Tobacco Use: Non-smoker Meaningful Use Info Meaningful Use Diagnoses (Choose all that apply): Ischemic CVA - CVA Therapy Assessed for PT,OT and/or ST?: Yes - Ischemic Stroke Antithrombotic order at d/c?: Yes Dx of Atrial fib/flutter?: No Statins at discharge?: Yes Primary Dx Acute Ischemic CVA?: Yes IV tPA ordered during stay?: No Reason IV t-PA not ordered: Medical Contraindication Code Visit OBSV E&M: 38296 Observation care discharge
[2018-12-30 12:26] VITALS: BMI 25.7
--- NOTE | 2018-12-30 12:26 | DS.PCM_ITS ---
<Alison Randall - Last Filed: 12/30/18 12:27> Discharge Date and Diagnosis Date of Admission: 12/28/18 Date of Discharge: 12/30/18 - Primary Discharge Diagnosis Active and Suspected Problems (Last Reviewed 12/29/18 @ 12:25 by Fabrice Sorensen MD) 1. Acute stroke, small left cortical infarct 2. Hypertension 3. Type 2 diabetes mellitus 4. GERD - Secondary Discharge Diagnosis Chronic Problems (Last Reviewed 12/29/18 @ 12:25 by Fabrice Sorensen MD) Diabetes mellitus type 2 in nonobese (Chronic) Family history of skin cancer (Chronic) Actinic keratosis (Chronic) 8 mm actinic keratosis with moderate atypia dorsum right hand by long finger Hospital Course and Treatment Imaging Results: Diagnostic Data Brain CT 12/28/18 14:37 IMPRESSION: 1. No acute intracranial hemorrhage or mass effect. 2. Age-appropriate central parenchymal volume loss. White matter changes that are nonspecific but most commonly associated with chronic small vessel ischemic disease. Electronically Signed: Frederick Issa MD at 14:59 EDT , Service support , Brain MRI 12/28/18 17:58 IMPRESSION: Small acute infarct of the left posterior frontal lobe. Moderate chronic microvascular ischemic changes. Electronically Signed: Maranda De La Torre MD at 9:44 EDT Tel , Service support , ADDENDUM: 12/29/18 1020 IMPRESSION: Small acute infarct of the left posterior frontal lobe. Moderate chronic microvascular ischemic changes. N.B. : The above information has been verbally conveyed by Maranda De La Torre MD to Jessica Wade; [phone], ZAIRE, on 12/29/2018 10:13:37 (ET). Electronically Signed: Maranda De La Torre MD at 9:44 EDT Tel , Service support , Dr. Sorensen- Neurology Operations: None Procedures: 2-D Echocardiogram Summary of Care Provided: The patient is a 78 year old F admitted 12/28/2018 due to right hand weakness. 1. Acute small left cortical infarct-right hand weakness improving. No other neurologic deficits. MRI of brain with small acute infarct of the left posterior frontal lobe. Carotid ultrasound with less than 50% stenosis. Echocardiogram showed an EF of 60%, stage I diastolic dysfunction. No arrhythmias noted on telemetry. Continue aspirin, statin at discharge. Patient will have outpatient PT. Follow-up with primary care physician in 1 week. Follow-up with neurology in 2-4 weeks. Recommended discontinuing home niacin regimen given addition of statin as patient reports she has significant flushing after taking. 2. Hypertension- Permissive given #1 for 24 hours. Blood pressure now within normal limits without further medication. Continue home metoprolol regimen. 3. Type 2 diabetes mellitus-continue home oral regimen. Hemoglobin A1c 7.7%. 4. GERD-continue Pepcid regimen. General: Alert, Oriented x3, Cooperative HEENT: Atraumatic, PERRLA, EOMI, Normocephalic Neck: Supple, No JVD, Negative Carotid Bruits Lungs: Clear to auscultation, Normal air movement Cardiovascular: Regular rate, Regular Rhythm, Normal S1, Normal S2, No murmurs Abdomen: Bowel Sounds Present, Soft, Non Tender, Non-Distended Extremities: No clubbing, No cyanosis, No edema, Capillary Refill Less than 3 Seconds Skin: No rashes, No breakdown Musculoskeletal: No Tenderness to Palpation of Joints or Extremities, Arthritic Changes Neurological: Cranial nerves II-XII grossly intact, Neuro grossly intact, Right hand weakness, 4/5 Psych/Mental Status: Normal Affect, Appropriate Patient seen and examined prior to discharge. Physical assessment as noted above. Patient is stable for discharge with follow up recommendations as noted above. This patient was seen by VEL Serna under the supervision of Dr. Ramírez. - Physical Exam Vital Signs Temp Pulse Resp BP Pulse Ox 97.8 F 103 H 16 137/67 H 96 12/30/18 08:18 12/30/18 11:00 12/30/18 08:18 12/30/18 08:18 12/30/18 08:18 Oxygen Delivery Method Room Air Weight: 131 lb 13.383 oz Body Mass Index (BMI) 25.7 Finger Stick Blood Glucose 265 Intake and Output for Last 24 Hours 12/28/18 12/29/18 12/30/18 23:59 23:59 23:59 Intake Total 0 / 0 1400 / 1400 Output Total 0 / 0 Balance 0 / 0 1400 / 1400 Laboratory Tests Past 24 Hrs 12/30/18 05:35 Sodium 144 Potassium 4.0 Chloride 110 H Carbon Dioxide 28.0 Anion Gap 6 BUN 16 Creatinine 0.86 Estim Creat Clear Calc 39.35 Est GFR (MDRD) Af Amer 82 Est GFR (MDRD) Non-Af 68 BUN/Creatinine Ratio 18.5 Glucose 138 H Calcium 8.8 POC Glucose 12/30/18 12/30/18 12/29/18 11:26 06:46 21:53 POC Glucose 279 H 132 H 265 H 12/29/18 16:47 POC Glucose 156 H Discharge Diet: No Restrictions Discharge Activity: Return to Normal Activity Call your doctor if you observe: Numbness or Tingling, Shortness of breath, Dizziness, Fainting spells, Chest pain Home Medications: Medications to take at Discharge Glimepiride [Amaryl] 2 mg PO BID 10/15/14 Metoprolol Tartrate [Lopressor (beta selvin)] 25 mg PO DAILY 10/15/14 Bismuth Subsalicylate [Pepto-Bismol] 262 mg PO BID 12/28/18 Famotidine [Pepcid] 20 mg PO BID 12/28/18 Loperamide HCl [Imodium A-D] 2 mg PO PRN PRN 12/28/18 Aspirin [Aspirin, Baby] 81 mg PO DAILY@0800 #30 tab.chew 12/29/18 Atorvastatin Calcium [Lipitor] 40 mg PO QHS #30 tablet 12/29/18 Following Prescrptions Were Given to Patient: Aspirin [Aspirin, Baby] 81 mg PO DAILY@0800 #30 tab.chew Atorvastatin Calcium [Lipitor] 40 mg PO QHS #30 tablet Primary Care Physician: Macy Stone DO [Primary Care Provider] - Please follow up with your Primary Care Physician in: 1 Week Please Follow Up With: Fabrice Sorensen MD When: 2-4 Weeks Disposition: Home Minutes spent on discharge:: 35 Patient Condition:: Stable Medical Necessity - Tobacco Use Smoking Status: Never smoker Tobacco Use: Non-smoker Meaningful Use Info Meaningful Use Diagnoses (Choose all that apply): Ischemic CVA - CVA Therapy Assessed for PT,OT and/or ST?: Yes - Ischemic Stroke Antithrombotic order at d/c?: Yes Dx of Atrial fib/flutter?: No Statins at discharge?: Yes Primary Dx Acute Ischemic CVA?: Yes IV tPA ordered during stay?: No Reason IV t-PA not ordered: Medical Contraindication <DesireeToñoStew - Last Filed: 12/30/18 16:32> Discharge Date and Diagnosis - Secondary Discharge Diagnosis Chronic Problems (Last Reviewed 12/29/18 @ 12:25 by Fabrice Sorensen MD) Diabetes mellitus type 2 in nonobese (Chronic) Family history of skin cancer (Chronic) Actinic keratosis (Chronic) 8 mm actinic keratosis with moderate atypia dorsum right hand by long finger Hospital Course and Treatment Operations: None Procedures: 2-D Echocardiogram Summary of Care Provided: Patient seen and examined independently. Data reviewed. I agree with the above note by the nurse practitioner. The patient is a 78 year old F presents with acute onset of right hand weakness. Patient was found to have an acute small left cortical infarct. Patient had workup, including echocardiogram that was unremarkable. Patient was seen in consultation by neurology. Patient discharged with aspirin and atorvastatin. Patient will follow-up with physical therapy as outpatient. She will follow-up with neurology. [] - Physical Exam General: Alert, Cooperative, No apparent distress HEENT: Atraumatic, Normocephalic Extremities: No edema Neurological: - - Slightly improved strength of the right hand as compared to yesterday. Vital Signs Temp Pulse Resp BP Pulse Ox 37.2 C 97 16 142/72 H 100 12/30/18 14:00 12/30/18 14:00 12/30/18 14:00 12/30/18 14:00 12/30/18 14:00 Oxygen Delivery Method Room Air Weight: 59.8 kg Body Mass Index (BMI) 25.7 Finger Stick Blood Glucose 265 Intake and Output for Last 24 Hours 12/28/18 12/29/18 12/30/18 23:59 23:59 23:59 Intake Total 0 / 0 1400 / 1400 Output Total 0 / 0 Balance 0 / 0 1400 / 1400 Laboratory Tests Past 24 Hrs 12/30/18 05:35 Sodium 144 Potassium 4.0 Chloride 110 H Carbon Dioxide 28.0 Anion Gap 6 BUN 16 Creatinine 0.86 Estim Creat Clear Calc 39.35 Est GFR (MDRD) Af Amer 82 Est GFR (MDRD) Non-Af 68 BUN/Creatinine Ratio 18.5 Glucose 138 H Calcium 8.8 POC Glucose 12/30/18 12/30/18 12/29/18 11:26 06:46 21:53 POC Glucose 279 H 132 H 265 H 12/29/18 16:47 POC Glucose 156 H Discharge Diet: Low fat/ Low Cholesterol Discharge Activity: Return to Normal Activity Call your doctor if you observe: Numbness or Tingling, Shortness of breath, Dizziness, Fainting spells, Chest pain Disposition: Home Minutes spent on discharge:: 35 Patient Condition:: Stable Medical Necessity - Tobacco Use Smoking Status: Never smoker Tobacco Use: Non-smoker Meaningful Use Info Meaningful Use Diagnoses (Choose all that apply): Ischemic CVA - CVA Therapy Assessed for PT,OT and/or ST?: Yes - Ischemic Stroke Antithrombotic order at d/c?: Yes Dx of Atrial fib/flutter?: No Statins at discharge?: Yes Primary Dx Acute Ischemic CVA?: Yes IV tPA ordered during stay?: No Reason IV t-PA not ordered: Medical Contraindication Code Visit OBSV E&M: 22541 Observation care discharge
[2018-12-30 14:00] VITALS: BP 142/72; PULSE 97; RESP 16; TEMP 37.2; O2SAT 100
== END 2018-12-30 11:17 | disposition home or self-care (01) ==
LOC: ED 14:48 → PCU 17:35
PROVIDERS: Family Medicine; Nurse Practitioner Family; Admitting Provider Internal Medicine; Emergency Provider Emergency Medicine; Family Provider Internal Medicine; PCP Internal Medicine; Referring Provider Internal Medicine
DX: I63.9 Cerebral infarction, unspecified (principal); I10 Essential (primary) hypertension; E11.9 Type 2 diabetes mellitus without complications; K21.9 Gastro-esophageal reflux disease without esophagitis; Z79.899 Other long term (current) drug therapy; R53.1 Weakness; H35.30 Unspecified macular degeneration; L57.0 Actinic keratosis; R29.701 NIHSS score 1; I65.23 Occlusion and stenosis of bilateral carotid arteries
CPT/HCPCS: 36415; 70450; 70551; 80048; 80061; 82962; 83036; 83735; 84443; 84484; 85025; 85610; 85730; 92523; 92610; 93005; 93306; 93880; 96372; 97161; 97166; 97530; 99218; 99283; J7030; Q9957; A4216; C8929; G0378

== ENCOUNTER 2019-01-29 09:30 | Outpatient (RCR) | payer MEDICARE, OTHER, SELFPAY ==
--- NOTE | 2019-01-05 17:05 | HP.OTEVAL ---
Patient's Visit Information SHERI JEAN is a 78 year old F, referred to Occupational Therapy by Macy Stone DO, with a diagnosis of INFARCT OF l POST FRONTAL LOBE. Date of Evaluation: 01/05/19 Occupational Therapist: Amarilys Sinha - Subjective Subjective: Arrived and noted she has CVA last weekend. She noted she had two night stay and noted MRI was only imaging showing the infarct of L post frontal lobe. She explained her main deficit is R sided weakness with increased dexterity issues of R hand. She noted some dexterity has returned but R thumb remains 'hard to function'. - ADLs Dressing: Button shirt, Pants, Shoes, Earrings Fasteners: Tie shoes, Buttons, Zippers Eating: Use silverware, Cut food Bathing: Handle washcloth & soap Toileting: Manage clothing Grooming: business management professor, Curling iron Kitchen: Chop with knife, Peel fruits & vegetables, Open jars, Open bottle caps, Lift gallon of milk, Pour from pitcher, Lift saucepan, Take dish out of oven Household: Laundry Comments: turning knobs on washing machine Miscellaneous: Unlock front door, Start car, Open medication bottle, Handle money (change), Hold change, Take things out of wallet, Write, Use computer keyboard, Do crafts, Sew, Miguel Angel/knit/needlework, Drive Comments: She is R hand dominant and has been compensating since CVA. - Pain Right Hand 0 Pain Intensity Range: 0, 3 - Objective Objective/Observation: Decreased coodination and finger dexierty observed; limited ROM and strength of R dominant hand compared to L. - ROM Wrist: Flexion R 0-43, L 0-51; extension R 0-30, L 0-40 MP: R 0-66, L 0-60 IP: R 0-47, L 0-61 Radial Abduction: R 0-39 ,L 0-44 MP: WFL PIP: WFL DIP: WFL - Strength Gas Plant Repairer: R 25, L 35 Lateral Pinch: R 10, L 12 Tripod Pinch: R 8, L 11 Tip-to-Tip Pinch: R 6, L 8 - Sensation Thumb: R 3.84; L 3.22 Index: R 3.84; L 3.22 Middle: R 3.61; L 3.22 Ring: R 2.83; L 2.83 Little: R 2.83; L 2.83 Kinesthesia: Abnormal - Right, Abnormal - Left Sensation Comments: Some sensation deficits noted for light touch. - Visual/Perceptual Skills Visual Field Cut: No Left Neglect: No Copies Shapes Correctly: Yes - Cognitive Skills Follows Directions: Yes - Attention Attention: Normal - Nine Hole Peg Right: 31.73 s Left: 28.62 s - Stroke Specific Quality of Life Total SS-QOL Score: 23 - Quick DASH-Disab of Arm,Shoulder& Hand Quick DASH Score: 29.5450 - Goals Goal:: Sheri to increase R hand by 15 mins to promote increased strength and dexterity needed to complete ADL/IADls with R dominant hand by d/c. Goal:: Sheri to increase R wrist ROM to that of L wrist ROM to promote increased mobility and strength needed for ADL/IADLs by d/c. Goal:: Sheri to complete daily reintegration techniques to promote increased sensation of R hand to normal on monofilment test by d/c. Goal:: Sheri to be (i) return to all ADL/IADls including crocheting and needpoint tasks with no compensatiosn 4/5 trials 80% of the time to promote returning to PLOF. Goal:: Sheri to be mod I to complete daily HEP to promote increased strength and ROM needed to return to PLOF for all ADL/IADLs by d/c. Goal:: Sheri to be (I) to complete increased finger dexterity as exhibited through decrease time on 9 hole pegboard test to promote dexterity needed to complete ADL/IADls by d/c. Goal:: Sheri to be (I) to compleetd all ADLS/IADls including craft tasks 4/5 trials 80% of the time to promote returning to PLOF by d/c. - Rehabilitation General Assessment: Sheri completed OT evaluation on this date of 01/05/19. She is one week s/p infarct of L frontal lobe. She exhibits decreased coordination, dexterity, ROM, and strength of R dominant hand when compared to L hand. Skilled Ot warranted to promote increased (I) with R hand to return to PLOF for all ADL/IADLs by d/c. Rehabilitation Potential: Excellent - Anticipated Interventions Anticipated Interventions: A/AAROM/PROM, Strengthening, Wound Care, Modalities, Joint Protection/Energy Conservation, Ergonomic Education, Fine Motor Coord/Mario, Caregiver Training, Home Program - Visit Plan Frequency: 1-2x /Week Duration: 4 Weeks General Plan: OT to be complete ROM, strengthening, sensory reintegration skills, and general rehabd to promote returning to PLOF by d/c. TEXT: Thank you for the opportunity to evaluate your patient. For Medicare and Medicare HMO plans, please review the plan of care and approve it. It will need to be FAXED BACK to us at [phone] for Medicare purposes. Please let me know if there are questions or concerns regarding this plan of care. Physician Signature: Date:
--- NOTE | 2019-01-06 10:03 | HP.PTEVAL ---
Patient's Visit Information REANNA JEAN is a 78 year old F referred to Physical Therapy by Macy Stone DO with a diagnosis of CVA. Date of Evaluation: 01/06/19 Physical Therapist: Ryan Ramirez, PT, ATC - Visit Plan Plan: Skilled PT not necessary at this time as pt only presents with hand complications which are currently being treated by OT. Discharge - Subjective Findings: P reports she had a CVA one week ago. Pt reports only her R hand and thumb were the only things affected from this CVA. Pt reports her balance is a little weak, but it was weak prior to having her stroke. Pt reports she also has a little LE weakness, but notes it was like that prio r to having her CVA. Pt denies any recent falls. Pt reports she is not in any pain this date. Pt reports she is not really sure why she is here for physical therapy, but notes she does think she would benefit from some balance training. Pt lives alone, and [place] she goes to her basement often. Pt reports she has no difficulty with stairs right now. Pt reports she has no other functional limitations at this time other than activity with her R UE. - Objective Neuro: B LE sensation is WNL to light touch. B patellar reflex= 3/3. MMT: B LE's are 5/5 throughout. ROM: B LE's are WFL. Gait: Pt is able to ambulate greater than 1000' without limitation. 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 For Medicare and Medicare HMO plans, please review the plan of care and approve it. It will need to be FAXED BACK to us at [phone] for Medicare purposes. For Medicare only, by signing this I certify the plan of care. Please let me know if there are questions or concerns regarding this plan of care. Physician Signature: Date:
--- NOTE | 2019-01-29 09:58 | HP.OTDCSUM ---
HP - OT D/C Summary It has been my pleasure to treat SHERI JEAN under orders from Macy Stone DO, for the diagnosis of INFARCT OF l POST FRONTAL LOBE for a total of 7 visit(s). Please see the following information for a summary of their discharge status. - Overall Improvement % Improvement: 90 - Objective Objective/Function: Completed measurements today 01/29/19 and are as follows: Health Education Director R 34, L 35. Lateral pinch R 10, L 11. Tripod R 10, L 12. Pinch R 10, L 10. Sensation. R 2nd 3.22, 3rd 3.22 ,4th 3.22 ,5th 3.22 ,thumb 3.22. L 2nd 3.22, 3rd 3.22 ,4th 3.22 ,5th 3.22 ,thumb 3.22. 9 hole pegbiard test: R 24.58 s. L 26.22 s. She has continued to make progress with sensation and strengthening. - Goals Patient Goals: Regain Mobility, Regain Strength, Decrease Pain, Improve Fine Motor Skills, Use Hand/Wrist/Arm Normally Again, Decrease Tingling/Numbness, Increase ROM, Be More Independent in ADLS, Resume Former Household Responsibilities (Cooking,Cleaning,Yard, etc.), Resume Hobbies Goal:: Sheri to increase R hand by 15 mins to promote increased strength and dexterity needed to complete ADL/IADls with R dominant hand by d/c. Goal:: Sheri to increase R wrist ROM to that of L wrist ROM to promote increased mobility and strength needed for ADL/IADLs by d/c. Goal:: Sheri to complete daily reintegration techniques to promote increased sensation of R hand to normal on monofilment test by d/c. Goal:: Sheri to be (i) return to all ADL/IADls including crocheting and needpoint tasks with no compensatiosn 4/5 trials 80% of the time to promote returning to PLOF. Goal:: Sheri to be mod I to complete daily HEP to promote increased strength and ROM needed to return to PLOF for all ADL/IADLs by d/c. Goal:: Sheri to be (I) to complete increased finger dexterity as exhibited through decrease time on 9 hole pegboard test to promote dexterity needed to complete ADL/IADls by d/c. Goal:: Sheri to be (I) to completed all ADLS/IADls including craft tasks 4/5 trials 80% of the time to promote returning to PLOF by d/c. - Plan Plan: Sheri has returned to PLOF and is completing all ADL/IADLs including crocheting at this time. She will be d/c'd today and is to call with questions or concerns. - D/C Information If there are questions or concerns regarding this patient's occupational therapy, please fell free to call me at [phone]. Thank you for the referral of this patient. Sincerely, Amarilys Sinha
== END 2019-01-29 19:00 | disposition home or self-care (01) ==
LOC: OT 09:30
PROVIDERS: Family Provider Internal Medicine; PCP Internal Medicine; Referring Provider Internal Medicine; Visit Provider Internal Medicine
DX: Z86.73 Personal history of transient ischemic attack (TIA), and cerebral infarction without residual deficits (principal)
CPT/HCPCS: 97110; 97161; 97166; 97530

== ENCOUNTER → 2019-02-02 08:43 | Outpatient (CLI) | payer MEDICARE, OTHER, SELFPAY ==
[2019-02-02 09:50] LABS: AST(SGOT) 19 U/L (15-37); Alanine Aminotransfer ALT/SGPT 19 U/L (13-56); Albumin, Serum 3.3 g/dL (3.2-5.0); Alkaline Phosphatase 78 U/L (45-117); Bilirubin, Direct 0.23 mg/dL (0.00-0.30); Globulin 3.8 g/dL (2.2-4.2); Protein, Total 7.1 g/dL (6.4-8.2)
[2019-02-03 16:07] LABS: CHOLESTEROL TOTAL 133 mg/dL (100-199); HDL-C 66 mg/dL (>39); HDL-P TOTAL 38.6 umol/L (>=30.5); SMALL LDL-P 214 nmol/L (<=527); TRIGLYCERIDES 129 mg/dL (0-149)
[2019-02-04 17:19] LABS: INSULIN RESISTANCE SCORE 30 (<=45); LDL SIZE 20.5 nm (>20.5); LDL-C 41 mg/dL (0-99); LDL-P 365 nmol/L (<1000)
== END ==
PROVIDERS: Family Provider Internal Medicine; PCP Internal Medicine; Referring Provider Internal Medicine; Visit Provider Internal Medicine
DX: E78.1 Pure hyperglyceridemia (principal)
CPT/HCPCS: 36415; 80061; 80076; 83704

== ENCOUNTER → 2019-05-19 07:28 | Outpatient (CLI) | payer MEDICARE, OTHER, SELFPAY ==
[2019-05-19 09:39] LABS: ALB/GLOB Ratio 0.9 RATIO (0.9-2.4); AST(SGOT) 24 U/L (15-37); Alanine Aminotransfer ALT/SGPT 26 U/L (13-56); Albumin, Serum 3.5 g/dL (3.2-5.0); Alkaline Phosphatase 80 U/L (45-117); Anion Gap 6 (5-15); BUN 16 mg/dL (7-18); BUN/Creat Ratio 17.3 RATIO (10-20); CRP < 2.90 mg/L (0.0-3.0); Calcium,Total 9.2 mg/dL (8.5-10.1); Chloride 108 mmol/L (98-107); Creatinine, Serum 0.93 mg/dL (0.55-1.02); EST Glomerular Filtration Rate 62 mL/min (>60); Est Glom Filt Rate - Afr Amer 75 mL/min (>60); Globulin 3.8 g/dL (2.2-4.2); Glucose 91 mg/dL (74-106); Potassium 3.8 mmol/L (3.5-5.1); Protein, Total 7.3 g/dL (6.4-8.2); Sodium Level 145 mmol/L (136-145)
[2019-05-20 19:33] LABS: CHOLESTEROL TOTAL 142 mg/dL (100-199); HDL-C 65 mg/dL (>39); HDL-P TOTAL 40.8 umol/L (>=30.5); SMALL LDL-P 273 nmol/L (<=527); TRIGLYCERIDES 137 mg/dL (0-149)
[2019-05-21 08:22] LABS: INSULIN RESISTANCE SCORE 36 (<=45); LDL SIZE 20.5 nm (>20.5); LDL-C 50 mg/dL (0-99); LDL-P 510 nmol/L (<1000)
== END ==
PROVIDERS: Family Provider Internal Medicine; PCP Internal Medicine; Referring Provider Internal Medicine; Visit Provider Internal Medicine
DX: E11.9 Type 2 diabetes mellitus without complications (principal); R79.82 Elevated C-reactive protein (CRP)
CPT/HCPCS: 36415; 80053; 80061; 83704; 86140

== ENCOUNTER → 2019-08-17 08:10 | Outpatient (CLI) | payer MEDICARE, OTHER, SELFPAY ==
[2019-08-17 08:21] LABS: Mucous, Urine 0 SEEN /hpf (<or=2+)
[2019-08-17 09:13] LABS: Absolute Lymphocyte Count 0.59 X10^3/uL (0.83-4.51); Basophil# 0.03 X10^3/uL; Basophil% 0.7 % (0-1); Eosinophil# 0.15 X10^3/uL; Eosinophils% 3.5 % (0-5); Hemoglobin 14.5 g/dL (12.0-15.0); Lymphocyte # 0.59 X10^3/ul (4.0); Lymphocyte % 13.9 % (19-41); Mean Corp Hgb Conc 33.7 g/dL (32-36); Mean Corpuscular Hgb 33.2 pg (27.0-32.0); Mean Corpuscular Volume 98.4 fL (81-99); Mean Platelet Vol. 11.6 fl (6.2-12.0); Monocyte# 0.52 X10^3/uL; Monocyte% 12.2 % (0-10); NRBC Flagged by Analyzer 0 % (0-5); Neutrophil # 2.95 X10^3/uL (2.7-7.7); Neutrophil % 69.5 % (47-70); POSITIVE DIFFERENTIAL YES; Platelet Count 148 K/mm3 (150-450); RBC Distribution Width CV 12.3 % (11.6-14.6); RBC Distribution Width SD 45.1 fl (35.1-43.9); Red Blood Count 4.37 M/mm3 (4.2-5.4); White Blood Count 4.3 K/mm3 (4.4-11.0)
[2019-08-17 09:22] LABS: Color, Urine Yellow (Yellow); Differential Indicated SCAN CRITERIA MET; Glucose, Dipstick Normal (Normal); Ketone-Dipstick Negative (Negative); Leukocyte Esterase-Dipstick 100 /ul (Negative); Nitrite-Dipstick Positive (Negative); Occult Blood-Urine 10 /ul (Negative); Protein-Dipstick Negative (Negative); Urine Bilirubin Dipstick Negative (Negative); Urine Clarity Sl. Cloudy (Clear); Urine Urobilinogen Normal (Normal)
[2019-08-17 09:32] LABS: Bacteria 4+ /hpf (None Seen); Red Blood Cells-Urine 0-5 SEEN /hpf (0-5); Squamous Epithelial Cells - UA 0-5 SEEN /hpf (5-10); White Blood Cells 5-10 SEEN /hpf (0-5)
[2019-08-17 09:36] LABS: Microalbumin,Random Urine 12.7 mg/L (NO RANGE EST.); Microalbumin:Creatinine Ratio 29.2 mg/g CRE (<30 mg/g CRE)
[2019-08-17 09:45] LABS: Vitamin D,25 Hydroxy 68.1 ng/mL (29.95-100.01)
[2019-08-17 09:46] LABS: AST(SGOT) 19 U/L (15-37); Alanine Aminotransfer ALT/SGPT 19 U/L (13-56); Albumin, Serum 3.6 g/dL (3.2-5.0); Alkaline Phosphatase 58 U/L (45-117); Anion Gap 5 (5-15); BUN 17 mg/dL (7-18); BUN/Creat Ratio 23.5 RATIO (10-20); Calcium,Total 9.3 mg/dL (8.5-10.1); Chloride 109 mmol/L (98-107); Creatinine, Serum 0.72 mg/dL (0.55-1.02); EST Glomerular Filtration Rate 83 mL/min (>60); Est Glom Filt Rate - Afr Amer 100 mL/min (>60); Globulin 3.5 g/dL (2.2-4.2); Glucose 92 mg/dL (74-106); Protein, Total 7.1 g/dL (6.4-8.2); Sodium Level 143 mmol/L (136-145); Thyroid Stim Hormone (TSH) 1.02 uIU/mL (0.358-3.74)
[2019-08-18 12:47] LABS: Pathologist Review Reviewed
[2019-08-18 16:07] LABS: CHOLESTEROL TOTAL 113 mg/dL (100-199); HDL-C 59 mg/dL (>39); HDL-P TOTAL 37.2 umol/L (>=30.5); SMALL LDL-P 184 nmol/L (<=527); TRIGLYCERIDES 129 mg/dL (0-149)
[2019-08-18 16:50] LABS: INSULIN RESISTANCE SCORE 31 (<=45); LDL SIZE 20.2 nm (>20.5); LDL-C 28 mg/dL (0-99); LDL-P <300 nmol/L (<1000)
== END ==
PROVIDERS: Family Provider Internal Medicine; PCP Internal Medicine; Referring Provider Internal Medicine; Visit Provider Internal Medicine
DX: E55.9 Vitamin D deficiency, unspecified (principal); I10 Essential (primary) hypertension; E11.65 Type 2 diabetes mellitus with hyperglycemia
CPT/HCPCS: 36415; 80053; 80061; 81001; 82043; 82306; 82570; 83704; 84443; 85025

== ENCOUNTER → 2020-03-02 06:42 | Outpatient (CLI) | payer MEDICARE, OTHER, SELFPAY ==
[2020-03-02 06:49] LABS: Mucous, Urine 0 SEEN /hpf (<or=2+)
[2020-03-02 07:27] LABS: Absolute Neutrophil Count 3.4 X10^3/uL (2.0-7.7); Basophil# 0.03 X10^3/uL; Basophil% 0.6 % (0-1); Eosinophil# 0.19 X10^3/uL; Eosinophils% 3.8 % (0-5); Hemoglobin 14.7 g/dL (12.0-15.0); Mean Corp Hgb Conc 33.4 g/dL (32-36); Mean Corpuscular Hgb 32.5 pg (27.0-32.0); Mean Corpuscular Volume 97.3 fL (81-99); Mean Platelet Vol. 11.9 fl (6.2-12.0); Monocyte# 0.61 X10^3/uL; Monocyte% 12.2 % (0-10); NRBC Flagged by Analyzer 0 % (0-5); Neutrophil # 3.36 X10^3/uL (2.7-7.7); Platelet Count 172 K/mm3 (150-450); RBC Distribution Width CV 12.8 % (11.6-14.6); RBC Distribution Width SD 44.9 fl (35.1-43.9); Red Blood Count 4.52 M/mm3 (4.2-5.4)
[2020-03-02 07:52] LABS: Microalbumin,Random Urine 16.6 mg/L (NO RANGE EST.); Microalbumin:Creatinine Ratio 26.3 mg/g CRE (<30 mg/g CRE)
[2020-03-02 08:01] LABS: Vitamin D,25 Hydroxy 88.5 ng/mL
[2020-03-02 08:09] LABS: AST(SGOT) 23 U/L (15-37); Alanine Aminotransfer ALT/SGPT 30 U/L (13-56); Albumin, Serum 3.7 g/dL (3.2-5.0); Alkaline Phosphatase 57 U/L (45-117); Anion Gap 7 (5-15); BUN 17 mg/dL (7-18); BUN/Creat Ratio 21.8 RATIO (10-20); Calcium,Total 9.1 mg/dL (8.5-10.1); Chloride 106 mmol/L (98-107); Cholesterol 116 mg/dL (200); Creatinine, Serum 0.78 mg/dL (0.55-1.02); EST Glomerular Filtration Rate 76 mL/min (>60); Est Glom Filt Rate - Afr Amer 92 mL/min (>60); Globulin 3.6 g/dL (2.2-4.2); Glucose 103 mg/dL (74-106); High Density Lipoprotein 61 mg/dL; Potassium 3.5 mmol/L (3.5-5.1); Protein, Total 7.3 g/dL (6.4-8.2); Sodium Level 142 mmol/L (136-145); Thyroid Stim Hormone (TSH) 1.84 uIU/mL (0.358-3.74); Triglycerides 155 mg/dL; Very Low Density Lipoprotein 31 mg/dL (5-40)
[2020-03-02 08:48] LABS: Color, Urine Yellow (Yellow); Glucose, Dipstick Normal (Normal); Ketone-Dipstick Negative (Negative); Leukocyte Esterase-Dipstick 500 /ul (Negative); Nitrite-Dipstick Positive (Negative); Occult Blood-Urine 10 /ul (Negative); Protein-Dipstick 15 mg/dl (Negative); Specific Gravity, Urine 1.015 (1.002-1.030); Urine Bilirubin Dipstick Negative (Negative); Urine Clarity Sl. Cloudy (Clear); Urine Urobilinogen Normal (Normal); Urine pH 6.5 (5.0 - 8.0)
[2020-03-02 08:55] LABS: Bacteria 2+ /hpf (None Seen); Red Blood Cells-Urine 0-5 SEEN /hpf (0-5); Squamous Epithelial Cells - UA 0-5 SEEN /hpf (5-10); White Blood Cells 25-50 SEEN /hpf (0-5)
== END ==
PROVIDERS: PCP Internal Medicine; Referring Provider Internal Medicine; Visit Provider Internal Medicine
DX: R80.9 Proteinuria, unspecified (principal); E11.65 Type 2 diabetes mellitus with hyperglycemia; I10 Essential (primary) hypertension; E55.9 Vitamin D deficiency, unspecified
CPT/HCPCS: 36415; 80053; 80061; 81001; 82043; 82306; 82570; 84443; 85025

== ENCOUNTER → 2020-09-06 07:45 | Outpatient (CLI) | payer MEDICARE, OTHER, SELFPAY ==
[2020-09-06 08:45] LABS: Absolute Lymphocyte Count 0.57 X10^3/uL (0.83-4.51); Absolute Neutrophil Count 2.8 X10^3/uL (2.0-7.7); Basophil# 0.04 X10^3/uL; Eosinophils% 4.9 % (0-5); Hematocrit 44.5 % (37-47); Hemoglobin 14.6 g/dL (12.0-15.0); Lymphocyte # 0.57 X10^3/ul (4.0); Mean Corp Hgb Conc 32.8 g/dL (32-36); Mean Corpuscular Hgb 32.2 pg (27.0-32.0); Mean Corpuscular Volume 98.2 fL (81-99); Mean Platelet Vol. 11.8 fl (6.2-12.0); Monocyte# 0.43 X10^3/uL; Monocyte% 10.6 % (0-10); NRBC Flagged by Analyzer 0 % (0-5); Neutrophil # 2.82 X10^3/uL (2.7-7.7); Neutrophil % 69.3 % (47-70); POSITIVE DIFFERENTIAL YES; Platelet Count 162 K/mm3 (150-450); RBC Distribution Width CV 12.5 % (11.6-14.6); Red Blood Count 4.53 M/mm3 (4.2-5.4); White Blood Count 4.1 K/mm3 (4.4-11.0)
[2020-09-06 08:46] LABS: Differential Indicated SCAN CRITERIA MET
[2020-09-06 09:06] LABS: Color, Urine Yellow (Yellow); Glucose, Dipstick Normal (Normal); Ketone-Dipstick Negative (Negative); Leukocyte Esterase-Dipstick 500 /ul (Negative); Nitrite-Dipstick Positive (Negative); Occult Blood-Urine 10 /ul (Negative); Protein-Dipstick 30 mg/dl (Negative); Urine Bilirubin Dipstick Negative (Negative); Urine Clarity Sl. Cloudy (Clear); Urine Urobilinogen Normal (Normal)
[2020-09-06 09:13] LABS: Differential Comment SCANNED
[2020-09-06 09:32] LABS: ALB/GLOB Ratio 1.1 RATIO (0.9-2.4); AST(SGOT) 28 U/L (15-37); Alanine Aminotransfer ALT/SGPT 29 U/L (13-56); Albumin, Serum 3.7 g/dL (3.2-5.0); Alkaline Phosphatase 63 U/L (45-117); Anion Gap 4 (5-15); BUN 12 mg/dL (7-18); BUN/Creat Ratio 14.7 RATIO (10-20); Calcium,Total 9.6 mg/dL (8.5-10.1); Chloride 107 mmol/L (98-107); Cholesterol 109 mg/dL (200); Creatinine, Serum 0.81 mg/dL (0.55-1.02); EST Glomerular Filtration Rate 72 mL/min (>60); Est Glom Filt Rate - Afr Amer 87 mL/min (>60); Globulin 3.4 g/dL (2.2-4.2); Glucose 135 mg/dL (74-106); High Density Lipoprotein 63 mg/dL; Potassium 3.9 mmol/L (3.5-5.1); Protein, Total 7.1 g/dL (6.4-8.2); Sodium Level 140 mmol/L (136-145); Thyroid Stim Hormone (TSH) 1.14 uIU/mL (0.358-3.74); Triglycerides 145 mg/dL; Very Low Density Lipoprotein 29 mg/dL (5-40)
[2020-09-06 09:40] LABS: Microalbumin,Random Urine 22.2 mg/L (NO RANGE EST.); Microalbumin:Creatinine Ratio 30.9 mg/g CRE (<30 mg/g CRE)
[2020-09-07 12:08] LABS: Pathologist Review Reviewed
== END ==
PROVIDERS: PCP Internal Medicine; Referring Provider Internal Medicine; Visit Provider Internal Medicine
DX: E11.9 Type 2 diabetes mellitus without complications (principal); E55.9 Vitamin D deficiency, unspecified
CPT/HCPCS: 36415; 80053; 80061; 81002; 82043; 82306; 82570; 84443; 85025; 87077; 87086; 87088; 87186

== ENCOUNTER → 2021-03-22 08:38 | Outpatient (CLI) | payer MEDICARE, OTHER, SELFPAY ==
[2021-03-22 08:48] LABS: Bacteria 0 SEEN /hpf (None Seen); Mucous, Urine 0 SEEN /hpf (<or=2+); Red Blood Cells-Urine 0 SEEN /hpf (0-5)
[2021-03-22 09:57] LABS: Absolute Lymphocyte Count 0.63 X10^3/uL (0.83-4.51); Absolute Neutrophil Count 3.2 X10^3/uL (2.0-7.7); Basophil# 0.03 X10^3/uL; Basophil% 0.7 % (0-1); Eosinophil# 0.21 X10^3/uL; Eosinophils% 4.6 % (0-5); Hematocrit 42.3 % (37-47); Hemoglobin 13.8 g/dL (12.0-15.0); Lymphocyte # 0.63 X10^3/ul (0.83-4.51); Lymphocyte % 13.9 % (19-41); Mean Corp Hgb Conc 32.6 g/dL (32-36); Mean Corpuscular Hgb 32.1 pg (27.0-32.0); Mean Corpuscular Volume 98.4 fL (81-99); Mean Platelet Vol. 11.8 fl (6.2-12.0); Monocyte# 0.47 X10^3/uL; Monocyte% 10.4 % (0-10); NRBC Flagged by Analyzer 0 % (0-5); Neutrophil # 3.16 X10^3/uL (2.7-7.7); Platelet Count 178 K/mm3 (150-450); RBC Distribution Width CV 12.4 % (11.6-14.6); RBC Distribution Width SD 44.4 fl (35.1-43.9); White Blood Count 4.5 K/mm3 (4.4-11.0)
[2021-03-22 10:02] LABS: Color, Urine Yellow (Yellow); Glucose, Dipstick Normal (Normal); Ketone-Dipstick Negative (Negative); Leukocyte Esterase-Dipstick 500 /ul (Negative); Nitrite-Dipstick Positive (Negative); Occult Blood-Urine Negative /ul (Negative); Protein-Dipstick Negative (Negative); Urine Bilirubin Dipstick Negative (Negative); Urine Clarity Sl. Cloudy (Clear); Urine Urobilinogen Normal (Normal); Urine pH 6.5 (5.0 - 8.0)
[2021-03-22 10:16] LABS: Amorphous Sediment 1+; Squamous Epithelial Cells - UA 0-5 SEEN /hpf (5-10); White Blood Cells 10-25 SEEN /hpf (0-5)
[2021-03-22 10:22] LABS: Microalbumin:Creatinine Ratio 31.7 mg/g CRE (<30 mg/g CRE)
[2021-03-22 10:38] LABS: AST(SGOT) 31 U/L (15-37); Alanine Aminotransfer ALT/SGPT 29 U/L (13-56); Albumin, Serum 3.4 g/dL (3.2-5.0); Alkaline Phosphatase 74 U/L (45-117); Anion Gap 6 (5-15); BUN 13 mg/dL (7-18); BUN/Creat Ratio 15.2 RATIO (10-20); Calcium,Total 9.2 mg/dL (8.5-10.1); Chloride 105 mmol/L (98-107); Cholesterol 123 mg/dL (200); Creatinine, Serum 0.86 mg/dL (0.55-1.02); EST Glomerular Filtration Rate 68 mL/min (>60); Est Glom Filt Rate - Afr Amer 82 mL/min (>60); Globulin 3.5 g/dL (2.2-4.2); Glucose 132 mg/dL (74-106); High Density Lipoprotein 59 mg/dL; Protein, Total 6.9 g/dL (6.4-8.2); Sodium Level 142 mmol/L (136-145); Thyroid Stim Hormone (TSH) 0.85 uIU/mL (0.358-3.74); Triglycerides 173 mg/dL; Very Low Density Lipoprotein 35 mg/dL (5-40)
== END ==
PROVIDERS: PCP Internal Medicine; Referring Provider Internal Medicine; Visit Provider Internal Medicine
DX: E55.9 Vitamin D deficiency, unspecified (principal); E11.9 Type 2 diabetes mellitus without complications
CPT/HCPCS: 36415; 80053; 80061; 81001; 82043; 82306; 82570; 84443; 85025

== ENCOUNTER → 2021-04-06 12:17 | Outpatient (CLI) | payer MEDICARE, OTHER, SELFPAY ==
--- NOTE | 2021-04-06 12:23 | BI_ITS ---
MAMMOGRAPHY - BILATERAL SCREENING 3-D TOMOSYNTHESIS REASON FOR EXAM: Female, 81 years old. SCREENING PERTINENT HISTORY: No significant family history. TECHNIQUE: 2-D mammograms and 3-D Tomosynthesis of the breast (s) were performed. CAD was performed. COMPARISON: 11/25/2018 FINDINGS: The breast composition is of scattered fibroglandular tissue. Fine nodularity seen particularly in the left breast where there are multiple egg-shell type calcifications behind the areola represent oil cysts or fat necrosis type calcifications. No evidence of spiculated lesion, microcalcifications, skin thickening or nipple retraction There has been no significant change since the prior study since the study of 11/25/2018. BI/SCRN MAMM (CAD)W/DENNISE BILAT IMPRESSION: No mammographic signs of malignancy. Routine yearly mammograms recommended. BIRADS 2. FOLLOW UP RECOMMENDATION: Yearly follow up mammogram recommended. (A) Approximately 10% of breast cancers are not detected by mammography. A normal mammogram should not delay biopsy of a clinically suspicious abnormality. Electronically Signed: Belia Galicia, at 12:51 EDT Tel , Service support ,
== END ==
PROVIDERS: PCP Internal Medicine; Referring Provider Internal Medicine; Visit Provider Internal Medicine
DX: Z12.31 Encounter for screening mammogram for malignant neoplasm of breast (principal)
CPT/HCPCS: 77063; 77067

== ENCOUNTER → 2021-04-11 10:21 | Outpatient (CLI) | payer MEDICARE, OTHER, SELFPAY ==
--- NOTE | 2021-04-11 10:33 | BD_ITS ---
STUDY: DUAL ENERGY X-RAY ABSORPTIOMETRY / DXA REASON FOR EXAM: Female, 81 years old. Z780. Patient is postmenopausal. Loss of height. TECHNIQUE: Bone Mineral Density (BMD) measurements of lumbar spine and bilateral hips were obtained. COMPARISON: Comparison is made with prior study dated 10/23/2018. FINDINGS: Lumbar Spine (L1-L4): g/cm2 (1.138) / T-score (-0.3) / Z-score (1.5) Findings are suggestive of normal bone density with a low fracture risk. Left Femur Total: g/cm2 (0.899) / T-score (-0.9) / Z-score (1.1) Left Femoral Neck: g/cm2 (0.888) / T-score (-1.1) / Z-score (1.1) Right Femur Total: g/cm2 (0.909) / T-score (-0.8) / Z-score (1.2) Right Femoral Neck: g/cm2 (0.860) / T-score (-1.3) / Z-score (0.9) The T-Scores on the most recent prior examination were: Lumbar Spine (L1-L4): There has been improvement of bone density since the previous examination. Left Femur Total: which represents an improvement of 2.4%. Right Femur Total: which represents a worsening of 1.4%. BD/Dexa Bone Density Study IMPRESSION: The patient is considered osteopenic as outlined below according to World Gee Organization (WHO) criteria with a low fracture risk. There has been improvement of bone density since the previous examination. Reference Information: The T-score is the number of standard deviations above or below the standard which is normal for young adults at their peak bone mineral density. The World Health Organization (WHO) interprets the T-scores as follows: Above -1 Normal bone density Between -1 and -2.5 Osteopenia Equal to / or below -2.5 Osteoporosis As a practical clinical guideline, osteopenia may be graded as follows: Mild -1 through -1.5 Moderate -1.6 through -2.0 Severe -2.1 through -2.4 The Z-score is the number of standard deviations above or below age-matched controls. A Z-score of less than -1.5 would be considered abnormal. References: 1. NIH Osteoporosis and Related Bone Diseases www osteo.org 2. International Society for Clinical Densitometry www iscd.org 3. National Osteoporosis Foundation www nof.org Electronically Signed: Mart Diamond MD at 14:25 EDT , Service support ,
== END ==
PROVIDERS: PCP Internal Medicine; Referring Provider Internal Medicine; Visit Provider Internal Medicine
DX: Z78.0 Asymptomatic menopausal state (principal)
CPT/HCPCS: 77080

== ENCOUNTER → 2021-09-25 08:23 | Outpatient (CLI) | payer MEDICARE, OTHER, SELFPAY ==
[2021-09-25 08:29] LABS: Mucous, Urine 0 SEEN /hpf (<or=2+); Red Blood Cells-Urine 0 SEEN /hpf (0-5)
[2021-09-25 10:16] LABS: Absolute Lymphocyte Count 0.57 X10^3/uL (0.83-4.51); Basophil# 0.02 X10^3/uL; Basophil% 0.4 % (0-1); Eosinophil# 0.12 X10^3/uL; Eosinophils% 2.6 % (0-5); Hematocrit 41.6 % (37-47); Hemoglobin 13.7 g/dL (12.0-15.0); Lymphocyte # 0.57 X10^3/ul (0.83-4.51); Lymphocyte % 12.5 % (19-41); Mean Corp Hgb Conc 32.9 g/dL (32-36); Mean Corpuscular Hgb 32.4 pg (27.0-32.0); Mean Corpuscular Volume 98.3 fL (81-99); Mean Platelet Vol. 12.5 fl (6.2-12.0); Monocyte# 0.82 X10^3/uL; NRBC Flagged by Analyzer 0 % (0-5); Neutrophil # 3.01 X10^3/uL (2.7-7.7); Neutrophil % 66.3 % (47-70); POSITIVE DIFFERENTIAL YES; Platelet Count 191 K/mm3 (150-450); RBC Distribution Width CV 12.4 % (11.6-14.6); RBC Distribution Width SD 44.7 fl (35.1-43.9); Red Blood Count 4.23 M/mm3 (4.2-5.4); White Blood Count 4.6 K/mm3 (4.4-11.0)
[2021-09-25 10:17] LABS: Differential Indicated SCAN CRITERIA MET
[2021-09-25 10:30] LABS: Color, Urine Yellow (Yellow); Glucose, Dipstick Normal (Normal); Ketone-Dipstick 5 mg/dl (Negative); Leukocyte Esterase-Dipstick 500 /ul (Negative); Nitrite-Dipstick Positive (Negative); Occult Blood-Urine 10 /ul (Negative); Protein-Dipstick 15 mg/dl (Negative); Urine Bilirubin Dipstick Negative (Negative); Urine Clarity Cloudy (Clear); Urine Urobilinogen Normal (Normal)
[2021-09-25 10:43] LABS: Bacteria 2+ /hpf (None Seen); Squamous Epithelial Cells - UA 5-10 SEEN /hpf (5-10); White Blood Cells 5-10 SEEN /hpf (0-5)
[2021-09-25 10:44] LABS: Vitamin D,25 Hydroxy 92.7 ng/mL
[2021-09-25 10:49] LABS: ALB/GLOB Ratio 0.9 RATIO (0.9-2.4); AST(SGOT) 34 U/L (15-37); Alanine Aminotransfer ALT/SGPT 31 U/L (13-56); Albumin, Serum 3.5 g/dL (3.2-5.0); Alkaline Phosphatase 71 U/L (45-117); Anion Gap 3 (5-15); BUN 10 mg/dL (7-18); BUN/Creat Ratio 13.2 RATIO (10-20); Calcium,Total 9.4 mg/dL (8.5-10.1); Chloride 106 mmol/L (98-107); Cholesterol 115 mg/dL (200); Creatinine, Serum 0.76 mg/dL (0.55-1.02); EST Glomerular Filtration Rate 78 mL/min (>60); Est Glom Filt Rate - Afr Amer 95 mL/min (>60); Globulin 3.8 g/dL (2.2-4.2); Glucose 91 mg/dL (74-106); High Density Lipoprotein 56 mg/dL; Potassium 4.2 mmol/L (3.5-5.1); Protein, Total 7.3 g/dL (6.4-8.2); Sodium Level 140 mmol/L (136-145); Thyroid Stim Hormone (TSH) 0.92 uIU/mL (0.358-3.74); Triglycerides 142 mg/dL; Very Low Density Lipoprotein 28 mg/dL (5-40)
[2021-09-25 10:50] LABS: Microalbumin:Creatinine Ratio 15.2 mg/g CRE (<30 mg/g CRE)
== END ==
PROVIDERS: PCP Internal Medicine; Visit Provider Internal Medicine
DX: I10 Essential (primary) hypertension (principal); E55.9 Vitamin D deficiency, unspecified; E11.9 Type 2 diabetes mellitus without complications; R80.9 Proteinuria, unspecified
CPT/HCPCS: 36415; 80053; 80061; 81001; 82043; 82306; 82570; 84443; 85025

== ENCOUNTER → 2022-04-27 | Outpatient (CLI) | payer MEDICARE, SELFPAY ==
--- NOTE | 2022-04-27 10:21 | BI_ITS ---
MAMMOGRAPHY - BILATERAL SCREENING REASON FOR EXAM: Female, 82 years old. Routine annual screening examination. PERTINENT HISTORY: Non-contributory. TECHNIQUE: Digital bilateral breast dennise (3D mammographic acquisition) in the CC and MLO projections. 2-D mediolateral oblique (MLO) and craniocaudad (CC) views of both breasts were obtained. CAD: Full Field Digital Mammography with Computer Added Detection was performed. COMPARISON: Comparison is made with prior study dated 04/06/2021 and 11/25/2018. FINDINGS: Breast Composition: There are scattered areas of fibroglandular density. There are no dominant masses or suspicious calcifications. Once again, stable appearance of the small nodules in both breasts. Stable calcified nodules in the left breast. No other significant abnormalities are identified. There has been no significant change since the prior study. BI/SCRN MAMM (CAD)W/DENNISE BILAT IMPRESSION: Stable bilateral screening mammogram. Yearly follow-up mammogram recommended. (A) ASSESSMENT CATEGORY: BIRADS Category 2: Benign. A letter regarding these results will be sent to the patient by the facility within 30 days. Approximately 10% of breast cancers are not detected by mammography. A normal mammogram should not delay biopsy of a clinically suspicious abnormality. [id number] Electronically Signed: Mart Diamond MD at 11:56 EDT ,
== END | disposition home or self-care (01) ==
LOC: OPBI 10:20
PROVIDERS: PCP Internal Medicine; Visit Provider Internal Medicine
DX: Z12.31 Encounter for screening mammogram for malignant neoplasm of breast (principal)
CPT/HCPCS: 77063; 77067

== ENCOUNTER → 2023-07-03 | Outpatient (CLI) | payer MEDICARE, SELFPAY ==
--- NOTE | 2023-07-03 10:55 | BD_ITS ---
STUDY: DUAL ENERGY X-RAY ABSORPTIOMETRY / DXA REASON FOR EXAM: Female, 83 years old. Z780 TECHNIQUE: Bone Mineral Density (BMD) measurements of lumbar spine and bilateral hips were obtained. COMPARISON: Comparison is made with prior study dated April 11, 2021. FINDINGS: Lumbar Spine (L1-L4): g/cm2 (0.964) / T-score (-0.8) / Z-score (2.0) Findings are suggestive of normal bone density with a low fracture risk. Left Femur Total: g/cm2 (0.867) / T-score (-0.6) / Z-score (1.6) Left Femoral Neck: g/cm2 (0.692) / T-score (-1.4) / Z-score (1.0) Right Femur Total: g/cm2 (0.798) / T-score (-1.2) / Z-score (1.0) Right Femoral Neck: g/cm2 (0.647) / T-score (-1.8) / Z-score (0.6) The T-Scores on the most recent prior examination were: Lumbar Spine (L1-L4): There has been worsening of bone density since the previous examination. Left Femur Total: which represents an improvement of 3.7%. Right Femur Total: which represents a worsening of 5.7%. BD/Dexa Bone Density Study IMPRESSION: The patient is considered osteopenic as outlined below according to World Gee Organization (WHO) criteria with a moderate fracture risk. There has been worsening of bone density since the previous examination. Reference Information: The T-score is the number of standard deviations above or below the standard which is normal for young adults at their peak bone mineral density. The World Health Organization (WHO) interprets the T-scores as follows: Above -1 Normal bone density Between -1 and -2.5 Osteopenia Equal to / or below -2.5 Osteoporosis As a practical clinical guideline, osteopenia may be graded as follows: Mild -1 through -1.5 Moderate -1.6 through -2.0 Severe -2.1 through -2.4 The Z-score is the number of standard deviations above or below age-matched controls. A Z-score of less than -1.5 would be considered abnormal. References: 1. NIH Osteoporosis and Related Bone Diseases www osteo.org 2. International Society for Clinical Densitometry www iscd.org 3. National Osteoporosis Foundation www nof.org Electronically Signed: Mart Diamond MD at 8:35 EDT ,
== END | disposition home or self-care (01) ==
LOC: OPBD 10:50
PROVIDERS: PCP Internal Medicine; Referring Provider Internal Medicine; Visit Provider Internal Medicine
DX: Z78.0 Asymptomatic menopausal state (principal)
CPT/HCPCS: 77080

== ENCOUNTER → 2023-11-20 | Outpatient (CLI) | payer MEDICARE, SELFPAY ==
--- NOTE | 2023-11-20 12:56 | CDU_ITS ---
Reason For Study: carotid occlusion/stenosis Rt. Velocities/BP Lt. Velocities/BP Prox CCA 65.1/11.2 cm/sec. Prox CCA 70.2/12.0 cm/sec. Mid CCA 57.2/11.2 cm/sec. Mid CCA 66.9/14.2 cm/sec. Dist CCA 58.5/10.3 cm/sec. Dist CCA 57.0/10.9 cm/sec. Prox ICA 47.1/8.4 cm/sec. Prox ICA 50.5/9.5 cm/sec. Mid ICA 61.3/9.4 cm/sec. Mid ICA 47.9/13.0 cm/sec. Dist ICA 49.0/10.3 cm/sec. Dist ICA 43.5/10.4 cm/sec. Rt. ICA/CCA = 61.3/57.5=1.1. Lt. ICA/CCA = 50.5/66.9=0.8. Prox ECA 43.4/0.0 cm/sec. Prox ECA 45.0/0.0 cm/sec. Rt. Vert. 48.1/13.1 cm/sec. Lt. Vert. 54.9/14.7 cm/sec. Right Extracranial There is intimal thickening but no significant atherosclerotic plaque noted in the right common carotid artery. There is homogeneous, smooth atherosclerotic plaque noted in the right internal carotid artery. There is intimal thickening but no significant atherosclerotic plaque noted in the right external carotid artery. Antegrade flow is noted in the right vertebral artery. Left Extracranial There is intimal thickening but no significant atherosclerotic plaque noted in the left common carotid artery. There is homogeneous, smooth atherosclerotic plaque noted in the left internal carotid artery. There is heterogeneous, smooth atherosclerotic plaque noted in the left external carotid artery. There is intimal thickening but no significant atherosclerotic plaque noted in the left external carotid artery. Antegrade flow is noted in the left vertebral artery. Procedure Carotid Duplex 85080. This is a Carotid Duplex examination using B-mode, color flow and specral Doppler. Exam performed in department. VL/Carotid Duplex Ultrasound Interpretation Summary Mild (<50%) stenosis right extracranial internal carotid. Mild (<50%) stenosis left extracranial internal carotid. Patent and antegrade vertebrals bilaterally. Ordering Physician: Macy Stone Referring Physician: Macy Stone Performed By: Ruth Muniz, VIDHYA, RVT
== END | disposition home or self-care (01) ==
LOC: CVS 12:54
PROVIDERS: PCP Internal Medicine; Referring Provider Internal Medicine; Visit Provider Internal Medicine
DX: I65.23 Occlusion and stenosis of bilateral carotid arteries (principal)
CPT/HCPCS: 93880

== ENCOUNTER → 2024-07-13 | Outpatient (CLI) | payer MEDICARE, SELFPAY ==
--- NOTE | 2024-07-13 09:42 | BI_ITS ---
MAMMOGRAPHY - BILATERAL SCREENING 3-D TOMOSYNTHESIS REASON FOR EXAM: Female, 84 years old. screening PERTINENT HISTORY: No significant family history. TECHNIQUE: 2-D mammograms and 3-D Tomosynthesis of the breast (s) were performed. CAD was performed. COMPARISON: 04/27/2022 FINDINGS: The breast composition is composed of scattered fibroglandular density. Scattered benign calcifications are seen. No dense spiculated masses or suspicious microcalcifications are identified. No architectural distortion is identified. There is no skin thickening or retraction. There has been no significant change since the prior study. BI/SCRN MAMM (CAD)W/DENNISE BILAT IMPRESSION: No mammographic signs of malignancy. Routine yearly mammograms recommended. ASSESSMENT CATEGORY: BIRADS Category 1: Negative. A letter regarding these results will be sent to the patient by the facility within 30 days. FOLLOW UP RECOMMENDATION: Yearly follow up mammogram recommended. (A) Approximately 10% of breast cancers are not detected by mammography. A normal mammogram should not delay biopsy of a clinically suspicious abnormality. Electronically Signed: Vikas Montero MD at 21:21 EDT ,
== END | disposition home or self-care (01) ==
LOC: OPBI 09:42
PROVIDERS: PCP Internal Medicine; Referring Provider Internal Medicine; Visit Provider Internal Medicine
DX: Z12.31 Encounter for screening mammogram for malignant neoplasm of breast (principal)
CPT/HCPCS: 77063; 77067

== ENCOUNTER → 2025-07-06 | Outpatient (CLI) | payer MEDICARE, SELFPAY ==
--- NOTE | 2025-07-06 10:03 | BD_ITS ---
PROCEDURE: DEXA BONE DENSITY STUDY 07/06/2025 REASON FOR EXAM: F, age 85 y/o . TECHNIQUE: Procedure Code: BDDBD Modality: DX Procedure: DEXA BONE DENSITY STUDY COMPARISON: 07/03/2023 FINDINGS: BMD and T-SCORES Lumbar spine: 0.951 g/cm2, T-score -0.9 Levels: L1 through L4 Change from prior: -1.4%. Left femoral neck: 0.675 g/cm2, T-score -1.6 Left total hip: 0.792 g/cm2, T-score -1.2 Change from prior: -8.6%. Right femoral neck: 0.638 g/cm2, T-score -1.9 Right total hip: 0.793 g/cm2, T-score -1.2 Change from prior: -0.5%. The World Health Organization has defined the following categories based on bone density: Normal bone density: T-score equal to or greater than -1.0 Osteopenia: T-score between -1.0 and -2.5 Osteoporosis: T-score equal to or less than -2.5 FRAX (or Comparable) Fracture Risk Assessment: 10 Year Probability of Fracture: Major Osteoporotic Fracture: 15% Hip Fracture: 4.5% (Note: FRAX is not to be reported in setting of normal range bone density, osteoporosis on DEXA, known history of osteoporosis, prior osteoporotic hip or vertebral fracture, or for any patient undergoing pharmacological treatment for bone loss.) The National Osteoporosis Foundation (NOF) recommends pharmacological treatment for patients with a FRAX 10-year risk of 3% or higher for a hip fracture, or 20% or higher for a major osteoporotic fracture, to prevent osteoporosis and reduce fracture risk. The patient does meet the pharmacological treatment recommendations for prevention of osteoporosis. BD/Dexa Bone Density Study IMPRESSION: There is osteopenia of both hips. There is normal bone mineral density of the lumbar spine. Recommend follow-up as clinically warranted. Reading Location: [id number]
== END | disposition home or self-care (01) ==
LOC: OPBD 10:02
PROVIDERS: PCP Internal Medicine; Referring Provider Internal Medicine; Visit Provider Internal Medicine
DX: Z13.820 Encounter for screening for osteoporosis (principal); Z78.0 Asymptomatic menopausal state
CPT/HCPCS: 77080

== ENCOUNTER → 2025-07-19 | Outpatient (CLI) | payer MEDICARE, SELFPAY ==
--- NOTE | 2025-07-19 10:45 | BI_ITS ---
EXAM: SCRN MAMM (CAD)W/DENNISE BILAT DATE: 07/19/2025 CLINICAL HISTORY: F, Age 85 y/o , SCREENING TECHNIQUE: Procedure Code: [id number] Modality: MG Procedure: SCRN MAMM (CAD)W/DENNISE BILAT COMPARISON: Prior exam(s) dated 07/13/2024, 04/27/2022 and 04/06/2021. FINDINGS: TISSUE DENSITY: There are scattered areas of fibroglandular density. Bilateral Breast Mammographic Findings: No significant masses, calcifications or other abnormalities are identified. Partially obscured stable isodense masses are seen in both breasts. Benign vascular calcifications, round microcalcifications and macrocalcifications are seen in both breast. Stable nodular masslike densities are seen in both breasts. BI/SCRN MAMM (CAD)W/DENNISE BILAT IMPRESSION: Unremarkable screening mammogram. OVERALL FINAL ASSESSMENT BI-RADS 2: BENIGN RECOMMENDATION: Routine annual follow-up in 1 Year Additional Recommendation none A letter with findings and recommendations will be mailed to the patient. Reading Location: [id number]
== END | disposition home or self-care (01) ==
LOC: OPBI 10:45
PROVIDERS: PCP Internal Medicine; Referring Provider Internal Medicine; Visit Provider Internal Medicine
DX: Z12.31 Encounter for screening mammogram for malignant neoplasm of breast (principal)
CPT/HCPCS: 77063; 77067